=== PATIENT | female | born 1935 | race Caucasian/White ===

== ENCOUNTER 2022-06-21 11:50 | Emergency (ER) | payer MEDICARE, SELFPAY ==
[2022-06-21 12:06] VITALS: BP 147/75; PULSE 67; RESP 18; TEMP 36.4; O2SAT 100; BMI 23.6
--- NOTE | 2022-06-21 12:13 | ED_ITS ---
HPI - General Adult General Time Seen by Provider: 12:13 Date Seen: 06/21/22 Chief complaint: Dizziness/Vertigo Stated complaint: Vertigo Time Seen by Provider: 06/21/22 12:00 Source: patient and RN notes reviewed Mode of arrival: wheelchair Limitations: no limitations History of Present Illness HPI narrative: Patient is an 86-year-old female coming in with concern of her head feeling funny. She states the best she can describe it is that it just feels like it is in her head and she feels funny. She feels like she might fall. When I ask her if it is a sense of imbalance, she states it feels like that. It is not a spinning sensation like true vertigo. She has a history of falling and having brain bleeds. On 12/06/2021 she was intoxicated and did end up following and had an acute subarachnoid and intraventricular hemorrhage. [place] [facility] [place] came back on February 11, there is a question of an abnormality on her head CT which on follow-up scan after observation here ended up being a artifact reportedly. She denies any head injury this time, no falls. Denies any visual changes, no headache, no speech abnormality. There is no focal weakness or motor abnormality in her arms or legs, no numbness tingling. She pulled out her walker to help her feel safe with walking. She has had no chest pain no sense of palpitations. She states she is on a baby aspirin, B12, vitamin-C, vitamin-D and a multivitamin. Related Data Home Medications Medication Instructions Recorded Confirmed No Known Home Medications 06/21/22 06/21/22 Allergies Allergy/AdvReac Type Severity Reaction Status Date / Time diphenhydramine Allergy Intermediate Verified 06/21/22 12:11 [From Benadryl] Sulfa (Sulfonamide Allergy Intermediate Verified 06/21/22 12:11 Antibiotics) Penicillins Allergy Unknown Verified 06/21/22 12:11 lisinopril Allergy Intermediate Uncoded 06/21/22 12:11 Review of Systems Status of ROS: Reports: 10 or more systems reviewed and unremarkable except as noted in History and below Exam Const: Vital Signs, click to edit/add: Vital Signs - 24 hr 06/21/22 12:06 Temperature 97.6 F Pulse Rate [Pulse Oximeter] 67 Respiratory Rate 18 Blood Pressure [Le ft Upper Arm] 147/75 H Pulse Oximetry 100 Documenting provider has reviewed patient's vital signs: yes Common normals: no apparent distress, oriented x3, no limitations, healthy appearing and alert General appearance: cooperative, comfortable (Sitting up on the edge the ER bed without any swaying or tremor) and well ket HENMT: Common normals: normocephalic, head/scalp atraumatic, hearing grossly normal bilaterally, external ears normal, external nose normal, nasal mucous membranes and turbinates normal, moist oral mucous membranes, oropharynx normal and dentition normal Head and scalp: normocephalic and atraumatic Nose: external nose normal and nasal mucous membranes and turbinates normal External ear: external ears normal Eye: Common normals: PERRL, EOMs intact bilaterally, conjunctivae normal and no scleral icterus Conjunctiva: conjunctiva(e) normal Pupil: PERRL Neck & C-Spine: Common normals: full ROM, no lymphadenopathy, supple, no meningeal signs, no JVD and thyroid normal Thyroid: thyroid normal Resp: Common normals: normal respiratory effort, no retractions, no use of accessory muscles and clear to auscultation bilaterally Auscultation: clear to auscultation bilaterally Cardio: Common normals: no JVD, regular rate, regular rhythm, S1 normal heart sound, S2 normal heart sound, no gallops, no clicks and no murmurs Rate: regular rate Rhythm: regular rhythm Heart sounds: S1 normal and S2 normal GI: Common normals: Normal to inspection, nondistended, normoactive bowel sounds present, soft to palpation, non-tender, no hepatosplenomegaly and no masses Palpation: soft and no hepatosplenomegaly Neuro: Common normals: oriented x3, CN's II-XII intact bilaterally, moves all extremities, no focal motor deficits and no sensory deficits noted Sensorium/orientation: alert Meningeal signs: no meningeal signs Coordination/balance: iqdszi-jb-jthv test normal, higv-yh-nyoj test normal and does not sway with eyes open Speech: speech normal Gait (neuro): normal gait Coordination: svwgtz-iv-wmoz test normal, xxfw-cp-itla test normal and does not sway with eyes open Psych: Appearance: well [facility] Course Course Hospital Course: We will obtain a head CT, basic labs on her. This time this may be more a issue disequilibrium. I find no focal deficits in no symptomatology pointing to an acute neurologic event. Will monitor her here and obtain these results. Reevaluation(s) Reevaluation #1: Patient states she is feeling better, we really have not done any interventions. I have discussed with her and her son that disequilibrium/lightheadedness can be a troublesome symptom. This does not mean that this symptom is not real to her but at this time in medicine we really do not have any easy readily identifiable fix for her. I would recommend physical therapy and she can get that referral through her primary care provider. If the symptoms should return and are severe, I would always recommend re-evaluation as a did review with them that symptom changes that are severe could be indicative of cardiac or [employer] disease. At this time, however, I do feel that she is safe to proceed to further outpatient evaluation and follow up with her primary care provider. Time: 14:23 Vital Signs Vital signs: Initial Vital Signs Temperature 97.6 F 06/21/22 12:06 Temperature Source Temporal Artery Scan 06/21/22 12:06 Pulse Rate 67 06/21/22 12:06 Respiratory Rate 18 06/21/22 12:06 Blood Pressure 147/75 H 06/21/22 12:06 Blood Pressure Mean 99 06/21/22 12:06 Blood Pressure Position Supine 06/21/22 12:06 Pulse Oximetry 100 06/21/22 12:06 Vital Signs Temperature 97.6 F 06/21/22 12:06 Pulse Rate 67 06/21/22 12:06 Respiratory Rate 18 06/21/22 12:06 Blood Pressure 147/75 H 06/21/22 12:06 Pulse Oximetry 100 06/21/22 12:06 Temperature 97.6 F 06/21/22 12:06 Pulse Rate 67 06/21/22 12:06 Respiratory Rate 18 06/21/22 12:06 Blood Pressure 147/75 H 06/21/22 12:06 Pulse Oximetry 100 06/21/22 12:06 Medical Decision Making Lab Data Lab results reviewed: Yes I reviewed the patient's lab results (We did review the stable low hemoglobin.) Lab results narrative: Son was wondering if she should eat more iron rich foods like spinach. Reviewed with him that they should discuss this further with her primary care provider. Sometimes a hemoglobin in her if it has been this level as I am seen in her records, can be indicative of anemia of chronic disease and not truly an iron deficiency process. I would recommend talking to her primary about this further. Labs: Lab Results 06/21/22 06/21/22 Range/Units 13:20 13:20 WBC 5.21 (4.50-11.00) K/uL RBC 3.25 L (4.00-5.20) m/uL Hgb 10.6 L (12.0-16.0) gm/dL Hct 32.6 L (33.0-51.0) % MCV 100 (80-100) fL MCH 33 (26-34) pg MCHC 33 (32-36) gm/dL RDW Coeff of [place] 21.4 H (11.5-15.5) % Plt Count 393 (140-440) K/uL Neut % (Auto) 53.9 (42.0-72.0) % Lymph % (Auto) 30.7 (20-44) % [place] % (Auto) 12.5 H (0.0-11.0) % Eos % (Auto) 1.7 (0.0-7.0) % Baso % (Auto) 1.0 (0.0-3.0) % Neut # (Auto) 2.81 (1.7-7.0) K/uL Lymph # (Auto) 1.60 (0.90-2.90) K/uL [place] # (Auto) 0.70 (0.00-0.90) K/UL Eos # (Auto) 0.09 (0.00-0.50) K/uL Baso # (Auto) 0.05 (0.00-0.30) K/uL Abs Immat Gran (auto) 0.01 (0.00-0.30) K/uL Sodium 142 (135-149) mmol/L Potassium 3.9 (3.6-5.1) mmol/L Chloride 106 (96-114) mmol/L Carbon Dioxide 29 (20-32) mmol/L BUN 11 (7-30) mg/dL Creatinine 0.6 (0.5-1.5) mg/dL Estimated Creat Clear 33.87 Estimated GFR 88 ml/min Glucose 91 (60-115) mg/dL Calcium 9.3 (8.4-10.6) mg/dL Total Bilirubin 0.4 (0.1-1.5) mg/dL AST 17 (12-35) U/L ALT 12 (4-35) U/L Alkaline Phosphatase 79 (40-150) U/L Total Protein 6.7 (6.0-8.3) g/dL Albumin 4.0 (3.3-5.0) g/dL Ethyl Alcohol < 0.01 L (0.01-0.03) % Imaging Data CT scan - head: Attestation: I have reviewed the pertinent imaging results. Radiologist's impression: Patient: MICHELLE FLOOD Facility:?[facility] Patient ID:?[id number] Site Patient ID:?[id number]. Site :?[id number] Study:?CT Head WITHOUT-06/21/2022 12:45:49 PM Ordering Physician:Shelley Delcid Final Report: INDICATION: Unsteady TECHNIQUE: Noncontrast CT images acquired through the brain. COMPARISON: CT brain 02/11/2022. FINDINGS: Prominence of the ventricles and sulci compatible with njyj-bc-iiekgjpt diffuse cerebral volume loss. No mass effect or midline shift. The [place] white differentiation is maintained. No acute intracranial hemorrhage or pathologic extra-axial fluid collection. Patchy hypoattenuation in the supratentorial white matter, suggestive of xqgp-bi-nihyafuj chronic microvascular changes. Intracranial atherosclerotic calcification occasions. Thinning of the ocular lenses. The calvarium is intact. Mild mucosal thickening left ethmoid air cells. The mastoid air cells are clear. IMPRESSION: No acute intracranial hemorrhage or mass effect. Please note that all CT scans at this facility use dose modulation, iterative reconstruction, and/or weight-based dosing when appropriate to reduce radiation dose to as low as reasonably achievable. Dictated by Isaac Dubon MD @ 06/21/2022 12:59:07 PM (Electronic Signature) Critical Care Time Critical Care Time Critical Care Time: No Discharge Plan Discharge Clinical Impression: Dysequilibrium Condition: Stable Instructions: Vertigo (ED), Dizziness (ED) Additional Instructions: Please schedule a follow-up with your primary care provider. Do recommend considering seen physical therapy, referral can be obtained through primary clinic. If you have return of symptoms that are severe, cannot function at home with return of symptoms, do need to be re-evaluated in the interim. Activity Level: Activity as Tolerated Prescriptions: No Action No Known Home Medications Follow Up/Referrals: Keyla Estes DO [Primary Care Provider] - Stand Alone Forms: [employer] Info Instructions
--- NOTE | 2022-06-21 12:30 | CRLHL7_ITS ---
For Patients: As a result of the Century Cures Act, medical imaging exams and procedure reports are released immediately into your electronic medical record. You may view this report before your referring provider. If you have questions, please contact your health care provider. INDICATION: Unsteady TECHNIQUE: Noncontrast CT images acquired through the brain. COMPARISON: CT brain 02/11/2022. FINDINGS: Prominence of the ventricles and sulci compatible with jsvq-lf-grikkehk diffuse cerebral volume loss. No mass effect or midline shift. The [place] white differentiation is maintained. No acute intracranial hemorrhage or pathologic extra-axial fluid collection. Patchy hypoattenuation in the supratentorial white matter, suggestive of ikvl-vm-ydluvtzp chronic microvascular changes. Intracranial atherosclerotic calcification occasions. Thinning of the ocular lenses. The calvarium is intact. Mild mucosal thickening left ethmoid air cells. The mastoid air cells are clear. IMPRESSION: No acute intracranial hemorrhage or mass effect. Please note that all CT scans at this facility use dose modulation, iterative reconstruction, and/or weight-based dosing when appropriate to reduce radiation dose to as low as reasonably achievable. Dictated by Isaac Dubon MD @ 06/21/2022 12:59:07 PM (Electronically Signed)
[2022-06-21 13:33] LABS: Basophils Absolute Auto 0.05 K/uL (0.00-0.30); Eosinophils Absolute Auto 0.09 K/uL (0.00-0.50); Eosinophils Percent Auto 1.7 % (0.0-7.0); Hematocrit 32.6 % (33.0-51.0); Hemoglobin* 10.6 gm/dL (12.0-16.0); Immature Granulocytes Abs Auto 0.01 K/uL (0.00-0.30); Lymphocytes Percent Auto 30.7 % (20-44); Mean Corpuscular HGB Conc 33 gm/dL (32-36); Mean Corpuscular Hemoglobin 33 pg (26-34); Mean Corpuscular Volume 100 fL (80-100); Monocytes Percent Auto 12.5 % (0.0-11.0); Neutrophils Absolute Auto 2.81 K/uL (1.7-7.0); Neutrophils Percent Auto 53.9 % (42.0-72.0); Platelet Count* 393 K/uL (140-440); RDW Coefficient of Variation % 21.4 % (11.5-15.5); Red Blood Count 3.25 m/uL (4.00-5.20); White Blood Count* 5.21 K/uL (4.50-11.00)
--- NOTE | 2022-06-21 13:42 | ED.NURSE ---
Patient up to bathroom with no assist. Reports vertigo sensation seems to have passed.
[2022-06-21 13:51] LABS: Slide Review Reflex No
[2022-06-21 13:57] LABS: Chloride* 106 mmol/L (96-114)
[2022-06-21 13:58] LABS: Potassium* 3.9 mmol/L (3.6-5.1); Sodium* 142 mmol/L (135-149)
[2022-06-21 14:00] LABS: Aspartate Amino Transferase* 17 U/L (12-35); Bilirubin Total* 0.4 mg/dL (0.1-1.5); Blood Urea Nitrogen* 11 mg/dL (7-30); Carbon Dioxide* 29 mmol/L (20-32); Creatinine* 0.6 mg/dL (0.5-1.5); Est. Creatinine Clearance* 33.87; Estimated Glomerular Filt Rate 88 ml/min; Total Protein* 6.7 g/dL (6.0-8.3)
[2022-06-21 14:01] LABS: Alanine Aminotransferase* 12 U/L (4-35); Alkaline Phosphatase* 79 U/L (40-150); Calcium* 9.3 mg/dL (8.4-10.6); Glucose* 91 mg/dL (60-115)
[2022-06-21 14:03] LABS: Ethanol* < 0.01 % (0.01-0.03)
== END 2022-06-21 14:50 | disposition home or self-care (01) ==
PROVIDERS: Emergency Provider Family Medicine; PCP Family Medicine
DX: R42 Dizziness and giddiness (principal)
CPT/HCPCS: 36415; 70450; 80053; 82077; 85025; 99284

== ENCOUNTER 2022-07-03 13:15 | Outpatient (RCR) | payer MEDICARE, SELFPAY | END 2023-02-24 13:47 | disposition home or self-care (01) | PROVIDERS: PCP Family Medicine; Visit Provider Family Medicine | DX: R42 Dizziness and giddiness (principal); Z51.89 Encounter for other specified aftercare | CPT/HCPCS: 97162 ==

== ENCOUNTER 2023-02-06 18:56 | Emergency (ER) | payer MEDICARE, SELFPAY ==
[2023-02-06 19:07] VITALS: BP 153/66; PULSE 82; RESP 20; TEMP 35.9; O2SAT 99; BMI 24.2
[2023-02-06 19:26] LABS: Appearance Urine Clear (Clear); Bilirubin Urine Negative (Negative); Blood Urine 3+ (Negative); Color Urine Red (Yellow); Glucose Urine Negative (Negative); Ketones Urine Negative (Negative); Leukocyte Esterase Urine 1+ (Negative); Nitrite Urine Negative (Negative); Protein Urine 2+ (Negative); Specific Gravity Urine <= 1.005 (1.000-1.030); Urobilinogen Urine 0.2 (0.2-1.0)
--- NOTE | 2023-02-06 19:27 | ED.GENADULT ---
HPI - General Adult General Chief complaint: Urogenital Problems, Female Stated complaint: Blood in urine Time Seen by Provider: 02/06/23 19:16 History of Present Illness HPI narrative: This 87-year-old female comes in reporting red color in her urine. She states that she feels completely normal. She does report a somewhat remote history of bladder cancer that was treated about 10 years ago. She has been doing well since then. She denies having any symptoms of dysuria and does not report any fevers. Related Data Home Medications Medication Instructions Recorded Confirmed No Known Home Medications 06/21/22 06/21/22 Allergies Allergy/AdvReac Type Severity Reaction Status Date / Time diphenhydramine Allergy Intermediate Verified 06/21/22 12:11 [From Benadryl] Sulfa (Sulfonamide Allergy Intermediate Verified 06/21/22 12:11 Antibiotics) Penicillins Allergy Unknown Verified 06/21/22 12:11 lisinopril Allergy Intermediate Uncoded 06/21/22 12:11 Review of Systems Status of ROS: Reports: 10 or more systems reviewed and unremarkable except as noted in History and below Narrative: Constitutional: No fevers, no weight gain or loss. Eyes: No discharge. No vision changes. HENT: No congestion, no sore throat, no ear pain. Cardiovascular: No chest pain, no palpitations. Respiratory: No shortness of breath, no wheezes, no cough. Gastrointestinal: No abdominal pain, no vomiting, no diarrhea. Genitourinary: No symptoms of dysuria but does have hematuria as described above. Musculoskeletal: Normal range of motion. Skin: No rashes, no pruritis. Neurological: No dizziness, weakness, sensory change, speech change. Endo/Heme/Allergies: No bruising or bleeding. No polydipsia. Pysch: no suicidality, no anxiety, no insomnia. All other systems reviewed and are negative. Exam Narrative: Exam Narrative: Constitutional: Well-developed, well-nourished, no acute distress. HEENT: Normocephalic, atraumatic. Neck: Normal range of motion. Nontender. Supple. Heart: Intact distal pulses. Lungs: No chest discomfort. No wheezes, rhonchi, or rales. Abdomen: Nontender. Back: Normal range of motion. Extremities: Normal range of motion. No injury. Skin: Intact. No rash. Warm. No erythema or pallor. Neurologic: No altered sensation. No weakness. Alert and oriented. Psychiatric: No suicidality. No anxiety or depression. No insomnia. Nursing notes and vitals signs are reviewed. Const: Vital Signs, click to edit/add: Vital Signs - 24 hr 02/06/23 19:07 Temperature 96.6 F L Pulse Rate [Pulse Oximeter] 82 Respiratory Rate 20 Blood Pressure [Ri ght Upper Arm] 153/66 H Pulse Oximetry 99 Course Vital Signs Vital signs: Initial Vital Signs Temperature 96.6 F L 02/06/23 19:07 Temperature Source Temporal Artery Scan 02/06/23 19:07 Pulse Rate 82 02/06/23 19:07 Pulse Rhythm Regular 02/06/23 19:07 Respiratory Rate 20 02/06/23 19:07 Blood Pressure 153/66 H 02/06/23 19:07 Blood Pressure Mean 95 02/06/23 19:07 Blood Pressure Position Sitting 02/06/23 19:07 Pulse Oximetry 99 02/06/23 19:07 Vital Signs Temperature 96.6 F L 02/06/23 19:07 Pulse Rate 82 02/06/23 19:07 Respiratory Rate 20 02/06/23 19:07 Blood Pressure 153/66 H 02/06/23 19:07 Pulse Oximetry 99 02/06/23 19:07 Temperature 96.6 F L 02/06/23 19:07 Pulse Rate 82 02/06/23 19:07 Respiratory Rate 20 02/06/23 19:07 Blood Pressure 153/66 H 02/06/23 19:07 Pulse Oximetry 99 02/06/23 19:07 Medical Decision Making MDM Narrative Medical decision making narrative: This patient comes in reporting red color in her urine. She states that she feels completely normal but does have a history of bladder cancer about 10 years ago. Urinalysis today shows no sign of infection but there is 10-25 red blood cells per high-powered field. I advised the patient follow-up with her urologist regarding this finding. She is okay to be discharged home for now. I also identified signs or symptoms that would indicate a need for return and re-evaluation here. Lab Data Labs: Lab Results 02/06/23 Range/Units 19:20 Urine Color Red A (Yellow) Urine Appearance Clear (Clear) Urine pH 6.0 (5.0-8.5) Ur Specific [place] <= 1.005 (1.000-1.030) Urine Protein 2+ A (Negative) Urine Glucose (UA) Negative (Negative) Urine Ketones Negative (Negative) Urine Blood 3+ A (Negative) Urine Nitrite Negative (Negative) Urine Bilirubin Negative (Negative) Urine Urobilinogen 0.2 (0.2-1.0) Ur Leukocyte Esterase 1+ A (Negative) Urine RBC 10-25 A (0-2) Urine WBC 0-2 (0-5) Ur Squamous Epith Cells Few (None-Few) Urine Bacteria None (None) Discharge Plan Discharge Clinical Impression: Hematuria Patient Disposition: Home, Self-Care Condition: Unchanged Additional Instructions: Follow-up with urology clinic for further evaluation. Return if worsening symptoms occur. Prescriptions: No Action No Known Home Medications Follow Up/Referrals: Keyla Estes DO [Primary Care Provider] - Stand Alone Forms: [employer] Info Instructions
[2023-02-06 19:38] LABS: Squamous Epithelial Cell Urine Few (None-Few); WBC Urine 0-2 (0-5)
== END 2023-02-06 19:54 | disposition home or self-care (01) ==
PROVIDERS: Emergency Provider Emergency Medicine Emergency Medical Services; PCP Family Medicine
DX: R31.9 Hematuria, unspecified (principal)
CPT/HCPCS: 81001; 99283; 99284

== ENCOUNTER 2023-12-29 12:49 | Outpatient (CLI) | payer MEDICARE, SELFPAY | END 2023-12-29 12:50 | disposition home or self-care (01) | LOC: INJ CL 12:49 | PROVIDERS: PCP Family Medicine; Visit Provider Family Medicine | DX: M17.12 Unilateral primary osteoarthritis, left knee (principal); M25.562 Pain in left knee | CPT/HCPCS: 64454 ==

== ENCOUNTER 2024-01-05 12:11 | Outpatient (CLI) | payer MEDICARE, SELFPAY | END 2024-01-05 12:12 | disposition home or self-care (01) | LOC: INJ CL 12:11 | PROVIDERS: PCP Family Medicine; Visit Provider Family Medicine | DX: M17.12 Unilateral primary osteoarthritis, left knee (principal); M25.562 Pain in left knee; G89.29 Other chronic pain | CPT/HCPCS: 64624; J2250; J3010 ==

== ENCOUNTER 2024-02-09 14:10 | Outpatient (RCR) | payer MEDICARE, SELFPAY | END 2024-03-24 13:24 | disposition home or self-care (01) | PROVIDERS: PCP Family Medicine; Visit Provider Family Medicine | DX: M53.3 Sacrococcygeal disorders, not elsewhere classified (principal); M54.50 Low back pain, unspecified; Z51.89 Encounter for other specified aftercare | CPT/HCPCS: 97110; 97140; 97161 ==

== ENCOUNTER 2024-04-20 15:16 | Emergency (ER) | payer MEDICARE, SELFPAY ==
[2024-04-20 15:19] VITALS: BP 127/77; PULSE 97; RESP 16; TEMP 37; O2SAT 98; BMI 25.9
--- NOTE | 2024-04-20 15:38 | CRLHL7_ITS ---
For Patients: As a result of the Century Cures Act, medical imaging exams and procedure reports are released immediately into your electronic medical record. You may view this report before your referring provider. If you have questions, please contact your health care provider. Indication: Right foot injury, jammed toe Technique: Three views right great toe Comparison: None Findings/Impression: The patient is status post proximal phalangeal surgery of the great toe with an acute oblique articular fracture extending from the medial cortex to the MTP joint. No significant displacement on these views. Underlying osteoarthritis of the 1st MTP joint with exuberant osteophytes and joint space narrowing. Some joint space narrowing at the 2nd MTP joint noted with a likely hammertoe deformity as well. Soft tissue swelling of the great toe. Dictated by Joni Mcintyre MD @ 04/20/2024 5:09:31 PM (Electronically Signed)
--- NOTE | 2024-04-20 15:39 | ED.GENADULT ---
HPI - General Adult General Chief complaint: Extremity Pain/Injury, Lower Stated complaint: R foot injured-tripped and fell Time Seen by Provider: 04/20/24 15:23 Source: patient Mode of arrival: ambulatory Limitations: no limitations History of Present Illness HPI narrative: 88-year-old female coming in today complaining of toe pain. Patient states that she was at [employer] and she tripped over a mattress palate. She complains of toe pain, the rest of the foot is entirely normal. Related Data Home Medications ?Medication ?Instructions ?Recorded ?Confirmed esomeprazole magnesium 40 mg 40 mg PO DAILY 04/20/24 04/20/24 capsule,delayed release Allergies Allergy/AdvReac Type Severity Reaction Status Date / Time diphenhydramine Allergy Intermediate Verified 04/20/24 15:25 [From Benadryl] Sulfa (Sulfonamide Allergy Intermediate Verified 04/20/24 15:25 Antibiotics) Penicillins Allergy Unknown Verified 04/20/24 15:25 lisinopril Allergy Intermediate Uncoded 06/21/22 12:11 Review of Systems Status of ROS: Reports: 6 or more systems reviewed and unremarkable except as noted in History and below [facility] Social History Smoking Status: Former smoker Do you use any of these nicotine containing products: None Second hand tobacco smoke exposure: No How often do you have a drink containing alcohol: 2-4 times a month How many standard drinks containing alcohol do you have on a typical day: 1 or 2 How often do you have six or more drinks on one occasion: Never AUDIT-C Alcohol total score: 2 Non-prescribed substance use: denies use service: No Exam Narrative: Exam Narrative: Well-nourished well-developed patient in no acute distress. Alert and oriented. Answers questions appropriately. Mood and affect are appropriate. Thoughts are goal oriented and rational. No tangential or magical thinking noted. Patient speaks in full sentences without needing to catch her breath. HEENT: Normocephalic atraumatic. Pupils are equally round reactive to light. Extraocular muscles are intact. Conjunctivae are moist without any icterus noted. Moist mucous membranes. Extremities: Patient has 1 to 2+ pitting edema bilaterally. She has old scarring on the right foot from previous bunion and toe surgeries. She has normal DP and PT pulses. She has tenderness palpation of the big toe however, there is no ecchymosis or erythema noted, she does have mild swelling. She does have a small neck of the skin on the plantar surface of the big toe. Bleeding has stopped. Const: Vital Signs, click to edit/add: Vital Signs - 24 hr 04/20/24 15:19 Temperature 98.6 F Pulse Rate [Pulse Oximeter] 97 Respiratory Rate 16 Blood Pressure [Ri ght Upper Arm] 127/77 Pulse Oximetry 98 Oxygen Delivery Me thod Room Air Course Course ED Course: Small skin puncture was cleaned and dressed. X-ray of the toe does reveal a fracture. Patient is placed in a postop shoe. She will follow-up with orthopedics. Vital Signs Vital signs: Initial Vital Signs Temperature 98.6 F 04/20/24 15:19 Temperature Source Temporal Artery Scan 04/20/24 15:19 Pulse Rate 97 04/20/24 15:19 Pulse Rhythm Regular 04/20/24 15:19 Pulse Strength 3+ Normal 04/20/24 15:19 Respiratory Rate 16 04/20/24 15:19 Blood Pressure 127/77 04/20/24 15:19 Blood Pressure Mean 93 04/20/24 15:19 Blood Pressure Position Sitting 04/20/24 15:19 Pulse Oximetry 98 04/20/24 15:19 Oxygen Delivery Method Room Air 04/20/24 15:19 Vital Signs Temperature 98.6 F 04/20/24 15:19 Pulse Rate 97 04/20/24 15:19 Respiratory Rate 16 04/20/24 15:19 Blood Pressure 127/77 04/20/24 15:19 Pulse Oximetry 98 04/20/24 15:19 Oxygen Delivery Method Room Air 04/20/24 15:19 Temperature 98.6 F 04/20/24 15:19 Pulse Rate 97 04/20/24 15:19 Respiratory Rate 16 04/20/24 15:19 Blood Pressure 127/77 04/20/24 15:19 Pulse Oximetry 98 04/20/24 15:19 Oxygen Delivery Method Room Air 04/20/24 15:19 Medical Decision Making MDM Narrative Medical decision making narrative: Fracture of the great toe. Plan per above Imaging Data X-ray great toe: Attestation: I have reviewed the pertinent imaging results. Radiologist's impression: Three views right great toe Comparison: None Findings/Impression: The patient is status post proximal phalangeal surgery of the great toe with an acute oblique articular fracture extending from the medial cortex to the MTP joint. No significant displacement on these views. Underlying osteoarthritis of the 1st MTP joint with exuberant osteophytes and joint space narrowing. Some joint space narrowing at the 2nd MTP joint noted with a likely hammertoe deformity as well. Soft tissue swelling of the great toe. Discharge Plan Discharge Clinical Impression: Fracture of toe Patient Disposition: Home, Self-Care Condition: Stable Additional Instructions: Wear postop shoe at all times, this will help with healing and with pain. Elevate the foot as much as possible when you are at home resting. Okay to take Tylenol as needed for discomfort. Should follow up with Orthopedics early next week-phone number will be given to you to make that appointment. Prescriptions: No Action esomeprazole magnesium 40 mg capsule,delayed release(DR/EC) 40 mg PO DAILY Follow Up/Referrals: Keyla Estes DO [Primary Care Provider] - Stand Alone Forms: [employer] Info Instructions
--- OUTSIDE RECORDS SUMMARY | 2024-04-20 16:05 | XMS_ITS | Clinical Summary ---
Author Organization [facility] Address [place], [place] [address] Care Team Providers Care Tap Builder Name Role Phone Keyla Estes DO Primary Care Provider [phone] Rhina Moore RN Unavailable [phone] Josiane Pineda Unavailable [phone] Allergies Active Allergy Reactions Criticality Noted Date Comments Amoxicillin-Pot Clavulanate Hives 11/08/2013 Diphenhydramine Hives 07/06/2009 Cat Dander Cough 12/22/2016 Celecoxib Rash 05/11/2007 Ibuprofen Other - Describe In Comment Field 04/13/2024 Stomach issue Penicillins Hives 05/11/2007 Entire drug class Pollen Extracts Other - Describe In Comment Field 04/13/2024 Sneezing, eye water, cough, and runny nose Guaifenesin Vomiting 07/02/2018 [place] Rash 09/21/2020 Sulfa (Sulfonamide Antibiotics) 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 0 05/12/2017 Active multivitamin (MVI) tablet Take 1 tablet by mouth once daily. 0 09/21/2020 Active cyanocobalamin (VITAMIN B-12) 1,000 mcg tabletIndications: Low vitamin B12 level Take 1 tablet by mouth once daily. 90 tablet. 3 10/30/2020 Active cholecalciferol (Vitamin D) 1,000 unit capsule Take 1 Capsule (1,000 units) by mouth once daily. 0 08/19/2021 Active acetaminophen (TYLENOL) 325 mg tablet Take 3 Tablets (975 mg) by mouth 3 times daily. Max acetaminophen dose: 4000mg in 24 hrs. 0 01/09/2022 Active ascorbic acid, vitamin C, (Vitamin C) 1,000 mg tablet Take 1 Tablet (1,000 mg) by mouth once daily. 0 04/28/2022 Active aspirin chewable 81 mg chewable tablet Chew 81 mg by mouth. Every other day 0 04/28/2022 Active Graduated Compression StockingsIndicatio ns:Vascular insufficiency of limb For personal use. Length: calf Strength: 16-20 mmHg Circumference in cm: For calf: Ankle 23, Calf 34.5, Ankle to calf length 21cm. 1 Packet 04/28/2022 Active calcium carbonate (CALTRATE) 600 mg calcium (1,500 mg) tablet Take 1 Tablet (600 mg) by mouth two times daily with meals. 180 Tablet 3 02/09/2023 Active levoFLOXacin (Levaquin) 500 mg tabletIndications: Malignant neoplasm of urinary bladder, unspecified site (HC) Take one tablet six hours after treatment and one tablet the day following treatment 6 Tablet 02/12/2024 Active esomeprazole (NEXIUM) 40 mg capsuleIndications :Black stool,Anemia of unknown etiology Take 1 Capsule (40 mg) by mouth once daily before a meal. 90 Capsule 04/19/2024 Active esomeprazole (NEXIUM) 40 mg capsuleIndications :Black stool,Anemia of unknown etiology Take 1 Capsule (40 mg) by mouth once daily before a meal. 90 Capsule 02/23/2024 04/19/20 24 Discontinu ed(Reorder (E-cancel not sent)) Active Problems Problem Noted Date Diagnosed Date Lipodermatosclerosis 08/11/2023 COVID-19 virus infection 08/02/2021 Fibromuscular dysplasia 02/06/2021 Overview: Saw vascular 12/2020. Told optimal blood pressure control with goal of less than 130/80 mmHg. Advised to avoid straining exercises or visits to chiropractors Advised to start aspirin 81 mg p.o. daily long-term as long as she can tolerate it No need to repeat images unless she becomes more symptomatic Anemia of chronic disease 02/06/2021 Overview: Saw hematology Dec 2020, told ACD, check CBC every 6 hours-12months with primary care physician Osteoarthritis of both knees 10/31/2020 Acute gastric ulcer with hemorrhage 12/21/2018 Overview: EGD 12/2018 5 mm penetrating ulcer, repeat EGD in 3 months EGD 03/2019 complete healing of ulcer Elevated BP 08/27/2015 Bladder cancer 06/23/2014 Overview: Bladder cancer. History of non-invasive papillary urothelial carcinoma, high grade diagnosed in 2012 ([id number]). Rotator cuff arthropathy 02/03/2014 Degenerative cervical disc 02/03/2014 Family history of uterine cancer 07/14/2013 Aortic regurgitation 12/12/2011 Overview: 1. Echocardiogram 2012: Mildly sclerotic, trileaflet aortic valve without stenosis. A. Mild plus aortic regurgitation. 2. Borderline size of the left atrium. 3. Normal sized left ventricle. A. Normal wall motion. B. Ejection fraction better than 55%. 4. Mildly sclerotic mitral valve. A. Trace mitral regurgitation. Trace tricuspid regurgitation. Enthesopathy of ankle and tarsus, unspecified Resolved Problems Problem Noted Date Diagnosed Date Resolved Date Traumatic brain injury, with loss of consciousness of 30 minutes or less, initial encounter 08/11/2023 01/26/2024 Encounters Date Type Department Care Team Description 04/19/2024 10:50 AM CDT Office Visit [facility] [address] [place] [address] Keyla Estes, Follow Up; Immunization/Inject ion 04/19/2024 Travel 04/13/2024 11:00 AM CDT Office Visit [facility] [place] [facility] [address] [place] [address] Josiane Pineda MBBS Follow Up 04/13/2024 Travel 04/06/2024 Orders Only [facility] [address] [place] [address] Keyla Estes, <No scans attached> 04/05/2024 11:15 AM CDT Orders Only [facility] [address] [place] [address] [place] [facility] 04/05/2024 Travel 03/25/2024 Telephone [facility] [address] [place] [address] [place], [facility] Cancer Appointment 03/08/2024 11:15 AM CDT Orders Only [facility] [address] [place] [address] [place] [facility] 03/08/2024 Orders Only [facility] [address] [place] [address] [address] Keyla Estes, DO <No scans attached> 03/08/2024 Travel 02/29/2024 12:08 PM CDT - 02/29/2024 11:59 PM CDT Hospital Encounter [facility] [address] [place] [address] 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 (HC) (Primary Dx) 02/29/2024 9:45 AM CDT Orders Only [facility] [place] [address] Lab, [place] [facility] 02/29/2024 Travel 02/25/2024 10:30 AM CDT Office Visit [facility] [place] [address] Sean Lara, [place] Hearing Aid (Consultation) 02/25/2024 9:00 AM CDT Office Visit [facility] [place] [address] [address] Sean Lara, [place] Hearing Problem 02/25/2024 Travel 02/23/2024 12:30 PM CDT Office Visit [facility] [place] [address] [address] Keyla Estes DO Follow Up (hgb) 02/22/2024 12:10 PM CDT - 02/22/2024 11:59 PM CDT Hospital Encounter [facility] [address] [address] 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 [place] [address] Lab, [place] [facility] 02/15/2024 Travel 02/12/2024 Telephone [facility] [address] [facility] [facility] [place] [address] Keyla Estes DO Medication Problem 02/12/2024 Refill [facility] [address] [place] [address] Josiane Pineda MBBS Refill Request 02/11/2024 Orders Only [facility] [address] [place] [address] Josiane Pineda MBBS <No scans attached> 02/10/2024 11:30 AM CDT Office Visit [facility] [address] [facility] [place] [address] Jose Ramon Alcantar DPM Consult (Left foot concern) 02/09/2024 9:35 AM CDT Office Visit [facility] [address] [place] [address] Keyla Estes DO Back Pain/problem (Lower right sided back pain 2 weeks) 02/09/2024 Travel 02/07/2024 Travel 02/02/2024 10:00 AM CDT Office Visit [facility] [address] [address] Josiane Pineda MBBS Follow Up 02/02/2024 Telephone [facility] [address] [place] [address] Keyla Estes DO Referral (Audiology ) 02/02/2024 Orders Only [facility] [address] [place] [address] Josiane Pineda MBBS <No scans attached> 02/02/2024 Travel 01/26/2024 10:50 AM CDT Office Visit [facility] [address] [place] [address] Keyla Estes DO Memory Loss (concerns); Immunization/Inject ion 01/26/2024 Telephone [facility] [address] [place] [address] [place], [facility] Cancer 01/25/2024 10:30 AM CDT Office Visit [facility] [address] [place] [address] Marika Wade AuD Hearing Aid (OLEA check) 01/25/2024 Orders Only [facility] [address] [place] [address] Josiane Pineda MBBS <No scans attached> 01/25/2024 Travel from Last 3 Months Immunizations Name Administration Dates Next Due AMB INFLUENZA IIV3 (AGE 65+ YRS) PF (Flu Clinic Only) 08/31/2019 COVID-19 Vaccine Spikevax (M oderna 50mcg/0.5mL) 12YO+ [id number] Formula PF 04/19/2024,01/26/2024,08/11/2023 COVID-19 vaccine (Egr Renovation-Bio NTech 30mcg/0.3mL) 12YO+ BIVALENT PF, MDV 08/12/2022 COVID-19 vaccine (Pfizer-Bio NTech 30mcg/0.3mL) 12YO+ MIRIAM-SUCROSE PF, MDV 02/17/2022 COVID-19 vaccine (Egr Renovation-Bio NTech 30mcg/0.3mL) PF, MDV 10/29/2021,01/08/2021,12/18/2020 DT (Age < 7 years) 03/03/2000 HepA-HepB (Twinrix) 04/08/2004,11/06/2003,2002 Influenza, High-dose Inactivated 09/09/2016,04/2014 Influenza, High-dose Quadriv alent Inactivated 08/11/2020 Influenza, IIV3 (Age 6-35 mos) 07/11/2011 Influenza, IIV3 (Age >=3 years) 08/02/20 13,07/14/2012,07/11/2011,2006,09/09/2006,09/10/2005,08/14/2004 Influenza, Inactivated AIIV4 (Age 65+ Years) Preserv Free 08/11/2023,08/12/2022,07/23/2021 Influenza, Inactivated IIV3 (Age 65+ Years) Preserv Free 07/02/2018,12/21/2017 Pneumococcal Poly,23-Valent (Pneumovax) 07/06/2009 Pneumococcal conj 13-Valent (Prevnar 13) 09/07/2014 Tdap 02/11/2022,07/11/2011 Typhoid (injectable) 10/05/2003 Zoster (Shingrix-RZV, recombinant) 06/29/2019, Zoster (Zostavax-ZVL, live) 05/11/2007 Family History Medical History Relation Name Comments Alcohol/Drug Father Cancer Father throat, smoker Heart Disease Father Cancer-breast Maternal Aunt Cancer-breast Maternal Grandmother Cancer-breast Mother age 91 Hyperlipidemia Sister 1 and eating di sorder Cancer Sister 2 endometiral can cer Relation Name Status Comments Father Maternal Aunt Maternal Grandmother Mother Sister 1 Sister 2 Social History Tobacco Use Types Packs/Day Years Used Date Smoking Tobacco: Former Cigarettes Q uit: 1971 Passive Smoke Exposure: Never Smokeless Tobacco: Never Tobacco Cessation:Counseling Given: Yes Alcohol Use Standard Drinks/Week Comments Yes 0 (1 standard drink = 0.6 oz pur e alcohol) glass of wine, occasionally PHQ-2 Answer Date Recorded PHQ-2 TOTAL SCORE 0 08/11/2023 Social Connections Answer Date Recorded Frequency of Communication with Friends and Fami ly 0 01/26/2024 Financial Resource Strain Answer Date R ecorded Difficulty of Paying Living Expenses 3 01/26/2024 Difficulty of Paying Living Expenses Not on file 01/26/2024 Food Insecurity Answer Date Recorded Worried About Running Out of Food in the Last Ye ar 1 01/26/2024 Transportation Needs Answer Date Record ed Lack of Transportation (Medical) 1 01/26/2024 Housing Stability Answer Date Recorded Unable to Pay for Housing in the Last Year 1 01/26/2024 Sex and Gender Information Value Date Recorded Sex Assigned at Female 04/25/2021 10:01 PM CDT Gender Identity Female 04/25/2021 10:01 PM CDT Sexual Orientation Straight 04/25/2021 10 :02 PM CDT Obstetrics History Para Term AB IAB SAB Ectopic Multiple Livin g Live Births 4 2 2 2 2 2 Date Outcome GA Total Labor Labor/2nd/3rd Weight Sex Type Anes PTL Bekah A1 A5 Name Clin Para Living Para Living SAB SAB Last Filed Vital Signs Vital Sign Reading Time Taken Comments Blood Pressure 123/79 04/19/2024 11:47 AM CDT Pulse 68 04/19/2024 11:47 AM CDT Temperature 37 ??C (98.6 ??F) 04/13/2024 11:09 AM CDT Respiratory Rate 14 04/13/2024 11:09 AM CDT Oxygen Saturation 100% 04/19/2024 11:47 AM CDT Inhaled Oxygen Concentration - - Weight 56.2 kg (124 lb) 04/19/2024 11:47 AM CDT Height 147.3 cm (4' 10) 04/13/2024 11:09 AM CDT Body Mass Index 25.92 04/13/2024 11:09 AM CDT Plan of Treatment Upcoming Encounters Date Type Department Care Team (Late st Contact Info) Description 08/15/2024 10:25 AM CDT Office Visit [facility] [address] [facility] [address] Keyla Estes, [address] [place] [place] [address] Health Maintenance Due Date Last Done Comments COVID-19 vaccine series (2022-24 season) 2024 04/19/2024, 01/26/2024, 08/11/2023, Additional history exists Influenza for age 65+ 07/03/2024 08/11/2023 , 08/12/2022, 07/23/2021, Additional history exists Medicare Wellness for age 65+ 08/11/2024, 10/29/2021, 09/21/2020, Additional history exists Depression screening for age 12+ 08/13/2024 08/13/2023, 08/13/2023, 08/12/2023, Additional history exists BMI (ht and wt on same day) for age 18+ 04/13/2025 04/13/2024, 02/02/2024, 12/21/2023, Additional history exists Tetanus booster 02/12/2032 02/11/2022, 07/2011, 07/11/2011 Pneumococcal series for age 65+ Completed 4, 07/06/2009 DEXA/DXA scan for age 65+ Completed 02/06/2015, 06/2009 Zoster (shingles) series for age 50+ Completed 06/29/2019, 03/07/2019, 05/11/2007 Tdap Completed 02/11/2022, 07/11/2011 Procedures Procedure Name Priority Date/Time Associated Diagnosis Comments URINALYSIS MICROSCOPIC Timed 04/13/2024 11:18 AM CDT 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 (HC) UA W/ SEDIMENT EXAM REFLEXED PER CRITERIA Routine 04/13/2024 11:18 AM CDT 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 (HC) HEMOGLOBIN Routine 04/05/2024 11:40 AM CDT Black stool UA W/ SEDIMENT EXAM REFLEXED PER CRITERIA Routine 03/08/2024 2:12 PM CDT Malignant neoplasm of urinary bladder, unspecified site (HC) HEMOGLOBIN Routine 03/08/2024 12:06 PM CDT Anemia of unknown etiology URINALYSIS MICROSCOPIC Routine 02/29/2024 10:00 AM CDT 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 (HC) UA W/ SEDIMENT EXAM REFLEXED PER CRITERIA Routine 02/29/2024 10:00 AM CDT 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 (HC) FOLIC ACID Routine 02/23/2024 12:36 PM CDT Anemia of unknown etiology VITAMIN B12 Routine 02/23/2024 12:36 PM CDT Anemia of unknown etiology FERRITIN Routine 02/23/2024 12:36 PM CDT Anemia of unknown etiology IRON PLUS IRON BINDING CAP Routine 02/23/2024 12:36 PM CDT Anemia of unknown etiology HEMOGLOBIN Routine 02/23/2024 12:36 PM CDT Black stool URINALYSIS MICROSCOPIC Routine 02/22/2024 9:56 AM CDT Malignant neoplasm of urinary bladder, unspecified site (HC) UA W/ SEDIMENT EXAM REFLEXED PER CRITERIA Routine 02/22/2024 9:56 AM CDT Malignant neoplasm of urinary bladder, unspecified site (HC) HEMOGLOBIN Routine 02/22/2024 9:52 AM CDT Black stool URINALYSIS MICROSCOPIC Routine 02/15/2024 9:32 AM CDT 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 (HC) UA W/ SEDIMENT EXAM REFLEXED PER CRITERIA Routine 02/15/2024 9:32 AM CDT 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 (HC) CYSTOSCOPY Routine 02/04/2024 2:02 PM CDT Malignant neoplasm of urinary bladder, unspecified site (HC) PATH URINE CYTOLOGY Routine 02/02/2024 1 0:11 AM CDT Malignant neoplasm of urinary bladder, unspecified site (HC) CG UFISH Routine 02/02/2024 10:11 AM CDT Malignant neoplasm of urinary bladder, unspecified site (HC) U WETLAB Routine 02/02/2024 10:11 AM CDT Malignant neoplasm of urinary bladder, unspecified site (HC) URINE FISH CYTOGENETICS Routine 02/02/2024 10:11 AM CDT Malignant neoplasm of urinary bladder, unspecified site (HC) URINALYSIS MICROSCOPIC Routine 02/02/2024 10:11 AM CDT Malignant neoplasm of urinary bladder, unspecified site (HC) UA W/ SEDIMENT EXAM REFLEXED PER CRITERIA Routine 02/02/2024 10:11 AM CDT Malignant neoplasm of urinary bladder, unspecified site (HC) XR DXA BONE DENSITY 2 SITES AXIAL Routine 02/06/2015 11:36 AM CDT Osteopenia from Last 3 Months or Most Recently Relevant to Health Maintenance Results * URINALYSIS MICROSCOPIC (04/13/2024 11:18 AM CDT) Only the most recent of5 resultswithin the time period is included. RBC 0-2 0-2, None Seen /HPF 04/13/2024 12:14 PM CDT [facility] WBC 0-2 0-2, 3-5, None Seen /HPF 04/13/2024 12:14 PM CDT [facility] BACTERIA None Seen None Seen, Rare, Few Bacteria/ HPF 04/13/2024 12:14 PM CDT [facility] EPITHELIAL CELLS None Seen None Seen, Few Epi/HPF 04/13/2024 12:14 PM CDT [facility] HYALINE CASTS 0-2 0-2, 3-5 /LPF 04/13/2024 12:14 PM CDT [facility] Urine URINE SPECIMEN / Unknown Non-Blood / Unknown 04/13/2024 11:18 AM CDT 04/13/2024 11:53 AM CDT Josiane PICKENS URINE [facility] [address] [place] [address], [place] * (ABNORMAL) ROUTINE URINALYSIS (04/13/2024 11:18 AM CDT) Only the most recent of6 resultswithin the time period is included. COLOR Yellow Yellow Color 04/13/2024 12:14 PM CDT [facility] CLARITY Clear Clear Clarity 04/13/2024 12:14 PM CDT [facility] SPECIFIC GRAVITY,URINE <=1.005(A) 1.010, 1.015, 1.020, 1.025 04/13/2024 12:14 PM CDT [facility] PH,URINE 7.0 6.0, 7.0, 8.0, 5.5, 6.5, 7.5, 8.5 04/13/2024 12:14 PM CDT [facility] UROBILINOGEN, QUALITATIVE Normal Normal EU/dl 04/13/2024 12:14 PM CDT [facility] PROTEIN, URINE Negative Negative mg/dL 04/13/2024 12:14 PM CDT [facility] GLUCOSE, URINE Negative Negative mg/dL 04/13/2024 12:14 PM CDT [facility] KETONES,URINE Negative Negative mg/dL 04/13/2024 12:14 PM CDT [facility] BILIRUBIN,URI NE Negative Negative 04/13/2024 12:14 PM CDT [facility] OCCULT BLOOD,URINE Negative Negative 04/13/2024 12:14 PM CDT [facility] NITRITE Negative Negative 04/13/2024 12:14 PM CDT [facility] LEUKOCYTE ESTERASE Trace(A) Negative 04/13/2024 12:14 PM CDT [facility] Urine URINE SPECIMEN / Unknown Non-Blood / Unknown 04/13/2024 11:18 AM CDT 04/13/2024 11:53 AM CDT Josiane Pineda [facility] [address] [place] [address], * (ABNORMAL) HEMOGLOBIN (04/05/2024 11:40 AM CDT) Only the most recent of4 resultswithin the time period is included. HEMOGLOBIN 10.2(L) 12.0 - 16.0 g/dL 04/05/2024 11:46 AM CDT [facility] MCV 103(H) 80 - 100 fL 04/05/2024 11:46 AM CDT [facility] Blood BLOOD SPECIMEN / Unknown Venipuncture / Unknown 04/05/2024 11:40 AM CDT 04/05/2024 11:41 AM CDT Keyla Estes DO HEMATOLOGY Performing Organization Address City/[facility]/ZIP Co de Phone Number [facility] [address] [place] [address], * (ABNORMAL) IRON PLUS IRON BINDING CAP (02/23/2024 12:36 PM CDT) IRON 188(H) 37 - 145 ug/dL 02/23/2024 11:27 PM CDT [facility] UIBC (UNSATURATED) 74(L) 112 - 347 ug/dL 02/23/2024 11:27 PM CDT [facility] IRON BINDING CAPACITY 262 250 - 400 ug/dL 02/23/2024 11:27 PM CDT [facility] IRON,% SATURATION 72(H) 14 - 50 % 02/23/2024 11:27 PM CDT [facility] Blood BLOOD SPECIMEN / Unknown Venipuncture / Unknown 02/23/2024 12:36 PM CDT 02/23/2024 12:39 PM CDT Keylaher Tereza Estes DO CHEMISTRY Performing Organization Address [facility] Co de Phone Number [facility] [address] [place] [place] [phone], [place] * FOLIC ACID (02/23/2024 12:36 PM CDT) FOLIC ACID 18.3 4.6 - 34.8 ng/mL 02/23/2024 11:27 PM CDT [facility] Blood BLOOD SPECIMEN / Unknown Venipuncture / Unknown 02/23/2024 12:36 PM CDT 02/23/2024 12:39 PM CDT Narrative [facility] - 02/23/2024 11:27 PM CDT Biotin supplements may cause clinically significant interference for this test assay. ??If interference is suspected, it is strongly recommended that biotin is discontinued for at least one week prior to retesting. Keyla Estes DO CHEMISTRY Performing Organization Address [facility] Co de Phone Number [facility] [address] [place] [address], [place] * (ABNORMAL) FERRITIN (02/23/2024 12:36 PM CDT) FERRITIN 179.0(H) 15.0 - 150.0 ng/mL 02/23/2024 11:27 PM CDT [facility] Blood BLOOD SPECIMEN / Unknown Venipuncture / Unknown 02/23/2024 12:36 PM CDT 02/23/2024 12:39 PM CDT Keyla Tereza Estes [employer] CHEMISTRY Performing Organization Address City/[facility] Co de Phone Number [facility] [address] [address], [place] * VITAMIN B12 (02/23/2024 12:36 PM CDT) VITAMIN B12 791 232 - 1,245 pg/mL 02/23/2024 11:27 PM CDT [facility] Blood BLOOD SPECIMEN / Unknown Venipuncture / Unknown 02/23/2024 12:36 PM CDT 02/23/2024 12:39 PM CDT Narrative [facility] - 02/23/2024 11:27 PM CDT Biotin supplements may cause clinically significant interference for this test assay. ??If interference is suspected, it is strongly recommended that biotin is discontinued for at least one week prior to retesting. Keyla Estes DO CHEMISTRY Performing Organization Address City/[facility]/ZIP Co de Phone Number [facility] [address] [place] [address], [place] * U WETLAB (02/02/2024 10:11 AM CDT) Urine URINE SPECIMEN / Unknown Non-Blood / Unknown 02/02/2024 10:11 AM CDT 02/02/2024 11:25 AM CDT Josiane Pineda [facility] Performing Organization Address City/[facility]/ZIP Co de Phone Number [facility] [address] [place] [address], [place] * CG UFISH (02/02/2024 10:11 AM CDT) Urine URINE SPECIMEN / Unknown Non-Blood / Unknown 02/02/2024 10:11 AM CDT 02/02/2024 11:25 AM CDT Josiane Pineda [facility] Performing Organization Address [facility]/ZIP Co de Phone Number [facility] [address] [place] [address], [place] * CYTOGENETIC FISH UROTHELIAL CARCINOMA (02/02/2024 10:11 AM CDT) RFR Bladder Cancer 02/10/2024 5:08 PM CDT [facility] TEST & RESULT SUMMARY [employer]ion FISH Panel: Negative for all panel probes. 02/10/2024 5:08 PM CDT [facility] _ 02/10/2024 5:08 PM CDT [facility] ISCN nuc carlos manuel(D3Z1,D7Z1,CDKN 2A,D17Z1)x2[25] 02/10/2024 5:08 PM CDT [facility] INTERPRETATION The UroV[employer]ion FISH Panel revealed negative results for all panel probes. A negative result does not entirely exclude the possibility of underlying low grade non-invasive urothelial carcinoma as some patients with low grade non-invasive urothelial carcinoma show no FISH abnormalities (Charmaine, 2000). Clinicopathologic correlation of these results is recommended. 02/10/2024 5:08 PM CDT [facility] TEST DETAILS REFERENCE RANGES Polysomy = gain of 2 or more chromosomes in 4 or more cells. Homozygous 9p21 loss = loss of all 9p21 probe loci in 12 or more cells. Negative = none of the above criteria were met in 25 or more urothelial cells reviewed. 02/10/2024 5:08 PM CDT [facility] SOURCE Urine, void [id number] 02/10/2024 5:08 PM CDT [facility] METHODS Fluorescence in situ hybridization (FISH) is performed using the FDA approved Vysis[employer] UroVysion Bladder Cancer Kit specific for detecting aneuploidy for chromosomes 3, 7, 17 and the loss of locus 9p21. This FISH test uses a multiplex probe stain procedure. 02/10/2024 5:08 PM CDT [facility] REFERENCES Charmaine et al., J Mol Diagn. 2000; 2:116-123. 02/10/2024 5:08 PM CDT [facility] DISCLAIMER The FDA approved Vysis UroVysion FISH Probe Kit was developed and its performance characteristics determined by [facility]. This test is performed with minor modifications to protocol and validated by the [facility] and [facility] to yield equivocal or superior performance. 02/10/2024 5:08 PM CDT [facility] Urine URINE SPECIMEN / Unknown Non-Blood / Unknown 02/02/2024 10:11 AM CDT 02/02/2024 11:25 AM CDT [facility] [address] [place] [address], * PATH URINE CYTOLOGY (02/02/2024 10:11 AM CDT) Case Report Medical Cytology Report ? Case: [id number] ? Authorizing Provider: ??Josiane Pineda MBBS ??Collected: ? 02/02/2024 1011 ? Ordering Location: ? [facility] ? Received: ?02/02/2024 1026 ? [place] ? Pathologist: ? Ktay Dior ? MD [place] ? Specimen: ?Urine Void ? 02/02/2024 3:38 PM CDT [facility] Final Diagnosis URINE FOR CYTOLOGY: Negative for high grade urothelial carcinoma 02/02/2024 3:38 PM [facility] Comment Cytogenetic (UroVysion FISH Panel) is pending; results will be issued as a separate report. According to the Aisha system of reporting urinary tract cytology, the diagnosis of negative for high grade urothelial carcinoma indicates the sample is composed of benign urothelial cells and that cells that could remotely raise the suspicion of high grade urothelial carcinoma are absent. This does not and cannot exclude the possibility of a low grade urothelial neoplasm. 02/02/2024 3:38 PM T [facility] Clinical Information The patient is a 88 y.o. female with a history of bladder cancer. 02/02/2024 3:38 PM T [facility] Gross Description A) SOURCE: Urine, Voided The specimen consists of 20 cc of light yellow hazy fluid from which the following is prepared: ? -1 Papanicolaou stained ThinPrep slide 02/02/2024 3:38 PM [facility] Microscopic Description All slides were reviewed microscopically. Specimen adequacy: Adequate for interpretation. The microscopic appearance substantiates the diagnosis. 02/02/2024 3:38 PM [facility] Cytogenetics Summary Cytogenetic testing has been ordered and will be reported separately. 02/02/2024 3:38 PM CDT [facility] Additional Information Cytology is screened at [facility], Central Laboratory - [address], [place] [address] and [facility] - [address], [place] [address] and [facility] - [address] [place] [address] Interpreted at [facility], Central Laboratory - [address], [place] [address] 02/02/2024 3:38 PM CDT [facility] Urine URINE SPECIMEN / Unknown Non-Blood / Unknown 02/02/2024 10:11 AM CDT 02/02/2024 10:26 AM CDT [facility]/CYTOLO G[facility] [address] [place] [address], * (ABNORMAL) XR DXA BONE DENSITY 2 SITES (02/06/2015 11:36 AM CDT) Anatomical Region Laterality Modality Spine, HIPS, HIPL, HIPR Other Narrative 02/21/2015 8:14 AM CDT Please see scanned document for results of this study. Procedure Note Erika Stout PA - 02/21/2015 Please see scanned document for results of this study. Keyla Estes DO DEXA from Last 3 Months or Most Recently Relevant to Health Maintenance Advance Directives Documents on File Type Date Recorded Patient Web Development Intern Expl anation Healthcare Directive 09/13/2013 2:51 PM M N HEALTH CARE DIRECTIVE/LETTER & ANATOMICAL BEQUEST, [facility], 09/13/13 Power of Animal Cytologist 07/17/2011 DURABLE PO WER OF OIL DRILLER FOR HEALTH CARE, [facility], 01/09/94 Healthcare Directive 07/17/2011 HEALTH CARE DIRECTIVE/LETTER, [facility], 08/03/2009 * Full Code (Latest Code Status on File) Date Activated Date Inactivated Comments 04/02/2023 8:29 AM 04/02/2023 4:04 PM Question Answer Comments Code Status Discussion: Reviewed Preferences Care Teams Tap Builder Relationship Specialty Start Date End Date Keyla [place] [place] [address] PCP - General Family Practice 07/21/13 Rhina Moore, JAD [address] [place] [id number] Nurse Navigator - Oncology Registered Nurse 04/08/23 Josiane Pineda MBBS [address] [place] [address] Surgery - Urology 04/13/23
[2024-04-20 17:34] VITALS: BP 161/81; PULSE 83; RESP 12; O2SAT 99
== END 2024-04-20 17:55 | disposition home or self-care (01) ==
PROVIDERS: Emergency Provider Family Medicine; PCP Family Medicine
DX: S92.404A Nondisplaced unspecified fracture of right great toe, initial encounter for closed fracture (principal); W22.8XXA Striking against or struck by other objects, initial encounter
CPT/HCPCS: 73660; 99283; 99284

== ENCOUNTER 2024-12-02 08:33 | Emergency (ER) | payer MEDICARE, SELFPAY ==
[2024-12-02 08:43] VITALS: BP 156/74; PULSE 74; RESP 16; TEMP 36.8; O2SAT 98; BMI 25.5
--- NOTE | 2024-12-02 08:53 | CRLHL7_ITS ---
For Patients: As a result of the Century Cures Act, medical imaging exams and procedure reports are released immediately into your electronic medical record. You may view this report before your referring provider. If you have questions, please contact your health care provider. INDICATION: Injury COMPARISON: February 11, 2022 in December 06, 2021 TECHNIQUE: CT examination of the cervical spine is performed without contrast using spiral technique. Thin axial, sagittal and coronal reconstructions were made. Please note that all CT scans at this facility use dose modulation, iterative reconstruction, and/or weight-based dosing when appropriate to reduce radiation dose to as low as reasonably achievable. FINDINGS: : Alignment is remarkable for straightening which is usually due to muscle spasm or positioning. 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 There is minimal loss of height of the superior endplate of T1. This appears to represent a change since the prior 2 studies there is unclear whether this is acute. Correlate with point tenderness in this area and consider additional imaging dedicated to the thoracic spine as appropriate. IMPRESSION: 1. Straightening likely due to muscle spasm or positioning. 2. Degenerative changes. 3. There is minimal loss of the superior endplate of T1 which represents a change since prior studies. I do not see a direct osseous discontinuity. The age of this is indeterminate but could be acute or subacute. Correlate with point tenderness in this area. Consider additional imaging of the thoracic spine if appropriate clinically Please note that all CT scans at this facility use dose modulation, iterative reconstruction, and/or weight-based dosing when appropriate to reduce radiation dose to as low as reasonably achievable. Dictated by Richard Feliciano MD @ 12/02/2024 9:28:36 AM (Electronically Signed)
--- NOTE | 2024-12-02 08:53 | CRLHL7_ITS ---
For Patients: As a result of the Century Cures Act, medical imaging exams and procedure reports are released immediately into your electronic medical record. You may view this report before your referring provider. If you have questions, please contact your health care provider. INDICATION: Injury COMPARISON: June 21, 2022 TECHNIQUE: CT examination of the head was performed as axial sections without intravenous contrast. Images were obtained from the vertex of the skull through the skull base. Please note that all CT scans at this facility use dose modulation, iterative reconstruction, and/or weight-based dosing when appropriate to reduce radiation dose to as low as reasonably achievable. FINDINGS: There are limitations due to motion. Within these limitations, the brain shows no sign of mass lesion, mass effect, hemorrhage, or edema. There are involutional changes. There is moderate cortical atrophy and there is moderate white matter disease. There is no hydrocephalus. The visualized portions of the orbits are normal in appearance. The osseous structures are normal in appearance with no sign of abnormality in the skull base or calvarium. IMPRESSION: Limitations due to motion. Within these limitations, there is no visible acute intracranial posttraumatic findings. There is atrophy and white matter disease. Please note that all CT scans at this facility use dose modulation, iterative reconstruction, and/or weight-based dosing when appropriate to reduce radiation dose to as low as reasonably achievable. Dictated by Richard Feliciano MD @ 12/02/2024 9:13:43 AM (Electronically Signed)
[2024-12-02 09:45] LABS: Lactate* 0.8 mmol/L (0.5-1.9)
[2024-12-02 09:52] LABS: Basophils Percent Auto 1.6 % (0.0-3.0); Eosinophils Percent Auto 2.5 % (0.0-7.0); Hematocrit 33.6 % (33.0-51.0); Lymphocytes Percent Auto 26.1 % (20-44); Mean Corpuscular HGB Conc 33 gm/dL (32-36); Mean Corpuscular Hemoglobin 34 pg (26-34); Mean Corpuscular Volume 104 fL (80-100); Monocytes Percent Auto 14.5 % (0.0-11.0); Neutrophils Percent Auto 55.3 % (42.0-72.0); Platelet Count* 405 K/uL (140-440); RDW Coefficient of Variation % 22.7 % (11.5-15.5); Red Blood Count 3.24 m/uL (4.00-5.20); White Blood Count* 4.48 K/uL (4.50-11.00)
[2024-12-02 09:54] LABS: Slide Review Reflex No
[2024-12-02 10:08] LABS: Mono Screen* Negative (Negative)
[2024-12-02 10:09] LABS: Albumin* 4.1 g/dL (3.3-5.0); Chloride* 107 mmol/L (96-114)
[2024-12-02 10:10] LABS: Potassium* 4.1 mmol/L (3.6-5.1); Sodium* 140 mmol/L (135-149)
[2024-12-02 10:11] LABS: Creatinine* 0.6 mg/dL (0.5-1.5); Est. Creatinine Clearance* 34.62; Estimated Glomerular Filt Rate 87 ml/min
[2024-12-02 10:12] LABS: Alkaline Phosphatase* 70 U/L (40-150); Anion Gap 6 mEq/L (7-15); Aspartate Amino Transferase* 17 U/L (12-35); Bilirubin Direct* 0.1 mg/dL (0.0-0.5); Bilirubin Total* 1.2 mg/dL (0.1-1.5); Carbon Dioxide* 27 mmol/L (20-32); Total Protein* 6.6 g/dL (6.0-8.3)
[2024-12-02 10:13] LABS: Alanine Aminotransferase* 14 U/L (4-35); Blood Urea Nitrogen* 11 mg/dL (7-30); Calcium* 9.3 mg/dL (8.4-10.6); Glucose* 92 mg/dL (60-115)
[2024-12-02 10:33] LABS: C Reactive Protein* < 0.5 mg/dL (0.5-1.0); Troponin I* < 0.01 ng/mL (0.01-0.04)
[2024-12-02 10:36] LABS: PCR FLU A Negative PCR FLU A (Negative); PCR FLU B Negative PCR FLU B (Negative); SARS PCR* Negative SARS-CoV-2 (Negative)
[2024-12-02 11:46] LABS: Appearance Urine Slightly Cloudy (Clear); Bilirubin Urine Negative (Negative); Blood Urine Negative (Negative); Color Urine Dark yellow (Yellow); Glucose Urine Negative (Negative); Ketones Urine Negative (Negative); Leukocyte Esterase Urine Trace (Negative); Nitrite Urine Negative (Negative); Protein Urine Trace (Negative); Urobilinogen Urine 0.2 (0.2-1.0)
--- NOTE | 2024-12-02 11:47 | ED.GENADULT ---
HPI - General Adult General Chief complaint: Head Injury/Pain Stated complaint: Fall 729, hit head Time Seen by Provider: 12/02/24 09:36 Source: patient and family Mode of arrival: ambulatory Limitations: no limitations History of Present Illness HPI narrative: Patient is an 88-year-old female presenting today after falling at home. She states that she was getting up in the morning going to the bathroom the pressure teeth and do her usual activities of daily living when all of a sudden she found herself on the floor. She is not sure how she fell, but feels certain that she hit her head when she hit the ground. She states that she was able to get up without assistance. She uses a walker when she gets around in the morning she did have her walker when she fell this morning. She denies headache or neck pain. She denies confusion, blurry vision, changes in her hearing. She is concerned because she has a history of anemia so she is wondering if her anemia caused her to faint. She denies back pain, buttocks pain or pain of the extremities. She is on a daily aspirin, no other blood thinners. 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 She lives independently. TTA was called on arrival. Related Data Home Medications ?Medication ?Instructions ?Recorded ?Confirmed aspirin 81 mg tablet,delayed 81 mg PO QDAY 06/14/24 06/14/24 release calcium carbonate 500 mg PO QDAY 06/14/24 06/14/24 Allergies Allergy/AdvReac Type Severity Reaction Status Date / Time diphenhydramine (From Allergy Intermediate Verified 06/14/24 10:23 Benadryl) Sulfa (Sulfonamide Allergy Intermediate Verified 06/14/24 10:23 Antibiotics) Penicillins Allergy Unknown Verified 06/14/24 10:23 lisinopril Allergy Verified 06/14/24 10:23 Review of Systems Status of ROS: Reports: 10 or more systems reviewed and unremarkable except as noted in History and below [facility] Medical History Osteoarthritis of left knee ?M17.12 - Unilateral primary osteoarthritis, left knee (ICD-10) Surgical History History of foot surgery ?Z98.890 - Other specified postprocedural states (ICD-10) History of tonsillectomy (1943) ?Z90.89 - Acquired absence of other organs (ICD-10) History of cystoscopy ?Z98.890 - Other specified postprocedural states (ICD-10) History of phacoemulsification of cataract of both eyes with intraocular lens implantation ?Z98.41 - Cataract extraction status, right eye (ICD-10) ?Z98.42 - Cataract extraction status, left eye (ICD-10) ?Z96.1 - Presence of intraocular lens (ICD-10) Social History Narrative: former smoker-quit 1956 Smoking Status: Former smoker What tobacco products do you use: cigarettes Smoking quit date/years: >15 years ago Do you use any of these nicotine containing products: None Second hand tobacco smoke exposure: No How often do you have a drink containing alcohol: 2-4 times a month How many standard drinks containing alcohol do you have on a typical day: 1 or 2 How often do you have six or more drinks on one occasion: Never AUDIT-C Alcohol total score: 2 Non-prescribed substance use: denies use service: No Exam Narrative: Exam Narrative: Well-nourished well-developed elderly patient in no acute distress. Alert and oriented x3. Answers questions appropriately. Mood and affect are appropriate. Thoughts are goal oriented and rational. No tangential or magical thinking noted. Patient speaks in full sentences without needing to catch her breath. GCS is 15. Patient is speaking and breathing without difficulty. There is no obvious bleeding noted. HEENT: Normocephalic atraumatic - no evidence of head trauma noted. Pupils are equally round reactive to light. Extraocular muscles are intact. Conjunctivae are moist without any icterus noted. Moist mucous membranes. Posterior pharynx is normal. No trauma noted to the inside of the mouth. Neck is soft without any lymphadenopathy or thyromegaly. No masses are appreciated. Cardiovascular: Heart is regular rate and rhythm S1 and S2 are present without any murmurs. Lungs: Clear to auscultation bilaterally no wheezes rhonchi or rales are appreciated. Patient takes deep breaths without any discomfort. Patient has no tenderness to palpation of the anterior, lateral posterior chest wall. Abdomen: Soft and nontender nondistended with normal bowel sounds. Extremities: Bilateral lower extremities are without edema. Skin: Well perfused without any obvious rashes. Back: Normal appearance. Patient has no tenderness to palpation at the cervical, thoracic or lumbar spine. Patient has full range of motion at the neck with flexion, extension, side way bending and rotation without pain. Const: Vital Signs, click to edit/add: Vital Signs - 24 hr 12/02/24 08:43 Temperature 98.2 F Pulse Rate [Pulse Oximeter] 74 Respiratory Rate 16 Blood Pressure [Ri ght Upper Arm] 156/74 H Pulse Oximetry 98 Oxygen Delivery Me thod Room Air Course Course ED Course: Head and neck CT were obtained given history of unwitnessed fall. Both were unremarkable. There was a question about a potential abnormality at T1. However a re-examine the patient at this time and applied specific pressure in the area and she does not have any tenderness. EKG, read by me, shows normal sinus rhythm with a pulse of 72. CBC showed mild anemia with a hemoglobin of 11. Chemistries are unremarkable. Normal glucose at 92. Normal LFTs. Normal troponin. Normal CRP. Negative COVID and influenza screening. Negative mono. Ethyl alcohol 0. UA showing trace leukocyte esterase. Discussed that it would be nice to have someone with her for the next few days before that she does not have any more recurrent episodes of falling. I also recommend she follow-up with your primary care provider this coming week for recheck. We discussed the possibility of needing a heart monitor should she have another episode of unexplained falling or syncope. Vital Signs Vital signs: Initial Vital Signs Temperature 98.2 F 12/02/24 08:43 Temperature Source Temporal Artery Scan 12/02/24 08:43 Pulse Rate 74 12/02/24 08:43 Pulse Rhythm Regular 12/02/24 08:43 Respiratory Rate 16 12/02/24 08:43 Blood Pressure 156/74 H 12/02/24 08:43 Blood Pressure Mean 101 12/02/24 08:43 Blood Pressure Position Sitting 12/02/24 08:43 Pulse Oximetry 98 12/02/24 08:43 Oxygen Delivery Method Room Air 12/02/24 08:43 Vital Signs Temperature 98.2 F 12/02/24 08:43 Pulse Rate 74 12/02/24 08:43 Respiratory Rate 16 12/02/24 08:43 Blood Pressure 156/74 H 12/02/24 08:43 Pulse Oximetry 98 12/02/24 08:43 Oxygen Delivery Method Room Air 12/02/24 08:43 Temperature 98.2 F 12/02/24 08:43 Pulse Rate 74 12/02/24 08:43 Respiratory Rate 16 12/02/24 08:43 Blood Pressure 156/74 H 12/02/24 08:43 Pulse Oximetry 98 12/02/24 08:43 Oxygen Delivery Method Room Air 12/02/24 08:43 Medical Decision Making MDM Narrative Medical decision making narrative: 88-year-old female status post fall, closed head injury. Unclear the etiology of her fall at this time. Patient will follow-up with primary care to discuss the need of heart monitor or further testing. Lab Data Lab results reviewed: Yes I reviewed the patient's lab results Labs: Lab Results 12/02/24 12/02/24 12/02/24 Range/Units 09:22 09:22 09:22 WBC 4.48 L Cancelled (4.50-11.00) K/uL Corrected WBC Cancelled RBC 3.24 L Cancelled (4.00-5.20) m/uL Hgb 11.0 L (12.0-16.0) gm/dL Hct (33.0-51.0) % MCV (80-100) fL MCH (26-34) pg MCHC (32-36) gm/dL RDW Coeff of Capri (11.5-15.5) % Plt Count (140-440) K/uL Neut % (Auto) (42.0-72.0) % Lymph % (Auto) (20-44) % [place] % (Auto) (0.0-11.0) % Eos % (Auto) (0.0-7.0) % Baso % (Auto) (0.0-3.0) % Neut # (Auto) (1.7-7.0) K/uL Lymph # (Auto) (0.90-2.90) K/uL [place] # (Auto) (0.00-0.90) K/UL Eos # (Auto) (0.00-0.50) K/uL Baso # (Auto) (0.00-0.30) K/uL Abs Immat Gran (auto) (0.00-0.30) K/uL Imm/Tot Granulo (auto) % Sodium Potassium Chloride Carbon Dioxide Anion Gap BUN Creatinine Estimated Creat Clear Estimated GFR Glucose Lactate (0.5-1.9) mmol/L Calcium Magnesium (1.5-2.6) mg/dL Total Bilirubin (0.1-1.5) mg/dL Direct Bilirubin (0.0-0.5) mg/dL AST (12-35) U/L ALT (4-35) U/L Alkaline Phosphatase (40-150) U/L Troponin I (0.01-0.04) ng/mL C-Reactive Protein (0.5-1.0) mg/dL Total Protein (6.0-8.3) g/dL Albumin (3.3-5.0) g/dL Urine Color (Yellow) Urine Appearance (Clear) Urine pH (5.0-8.5) Ur Specific [place] (1.000-1.030) Urine Protein (Negative) Urine Glucose (UA) (Negative) Urine Ketones (Negative) Urine Blood (Negative) Urine Nitrite (Negative) Urine Bilirubin (Negative) Urine Urobilinogen (0.2-1.0) Ur Leukocyte Esterase (Negative) Urine RBC (0-2) Urine WBC (0-5) Ur Squamous Epith Cells (None-Few) Urine Bacteria (None) Ethyl Alcohol (0.01-0.03) % SARS-CoV-2 (PCR) (Negative) Monoscreen (Negative) Influenza Type A (PCR) (Negative) Influenza Type B (PCR) (Negative) 12/02/24 12/02/24 12/02/24 Range/Units 09:22 09:22 09:22 WBC (4.50-11.00) K/uL Corrected WBC RBC (4.00-5.20) m/uL Hgb Cancelled (12.0-16.0) gm/dL Hct 33.6 Cancelled (33.0-51.0) % MCV 104 H Cancelled (80-100) fL MCH 34 (26-34) pg MCHC (32-36) gm/dL RDW Coeff of Capri (11.5-15.5) % Plt Count (140-440) K/uL Neut % (Auto) (42.0-72.0) % Lymph % (Auto) (20-44) % [place] % (Auto) (0.0-11.0) % Eos % (Auto) (0.0-7.0) % Baso % (Auto) (0.0-3.0) % Neut # (Auto) (1.7-7.0) K/uL Lymph # (Auto) (0.90-2.90) K/uL [place] # (Auto) (0.00-0.90) K/UL Eos # (Auto) (0.00-0.50) K/uL Baso # (Auto) (0.00-0.30) K/uL Abs Immat Gran (auto) (0.00-0.30) K/uL Imm/Tot Granulo (auto) % Sodium Potassium Chloride Carbon Dioxide Anion Gap BUN Creatinine Estimated Creat Clear Estimated GFR Glucose Lactate (0.5-1.9) mmol/L Calcium Magnesium (1.5-2.6) mg/dL Total Bilirubin (0.1-1.5) mg/dL Direct Bilirubin (0.0-0.5) mg/dL AST (12-35) U/L ALT (4-35) U/L Alkaline Phosphatase (40-150) U/L Troponin I (0.01-0.04) ng/mL C-Reactive Protein (0.5-1.0) mg/dL Total Protein (6.0-8.3) g/dL Albumin (3.3-5.0) g/dL Urine Color (Yellow) Urine Appearance (Clear) Urine pH (5.0-8.5) Ur Specific [place] (1.000-1.030) Urine Protein (Negative) Urine Glucose (UA) (Negative) Urine Ketones (Negative) Urine Blood (Negative) Urine Nitrite (Negative) Urine Bilirubin (Negative) Urine Urobilinogen (0.2-1.0) Ur Leukocyte Esterase (Negative) Urine RBC (0-2) Urine WBC (0-5) Ur Squamous Epith Cells (None-Few) Urine Bacteria (None) Ethyl Alcohol (0.01-0.03) % SARS-CoV-2 (PCR) (Negative) Monoscreen (Negative) Influenza Type A (PCR) (Negative) Influenza Type B (PCR) (Negative) 12/02/24 12/02/24 12/02/24 Range/Units 09:22 09:22 09:22 WBC (4.50-11.00) K/uL Corrected WBC RBC (4.00-5.20) m/uL Hgb (12.0-16.0) gm/dL Hct (33.0-51.0) % MCV (80-100) fL MCH Cancelled (26-34) pg MCHC 33 Cancelled (32-36) gm/dL RDW Coeff of Capri 22.7 H Cancelled (11.5-15.5) % Plt Count 405 (140-440) K/uL Neut % (Auto) (42.0-72.0) % Lymph % (Auto) (20-44) % [place] % (Auto) (0.0-11.0) % Eos % (Auto) (0.0-7.0) % Baso % (Auto) (0.0-3.0) % Neut # (Auto) (1.7-7.0) K/uL Lymph # (Auto) (0.90-2.90) K/uL [place] # (Auto) (0.00-0.90) K/UL Eos # (Auto) (0.00-0.50) K/uL Baso # (Auto) (0.00-0.30) K/uL Abs Immat Gran (auto) (0.00-0.30) K/uL Imm/Tot Granulo (auto) % Sodium Potassium Chloride Carbon Dioxide Anion Gap BUN Creatinine Estimated Creat Clear Estimated GFR Glucose Lactate (0.5-1.9) mmol/L Calcium Magnesium (1.5-2.6) mg/dL Total Bilirubin (0.1-1.5) mg/dL Direct Bilirubin (0.0-0.5) mg/dL AST (12-35) U/L ALT (4-35) U/L Alkaline Phosphatase (40-150) U/L Troponin I (0.01-0.04) ng/mL C-Reactive Protein (0.5-1.0) mg/dL Total Protein (6.0-8.3) g/dL Albumin (3.3-5.0) g/dL Urine Color (Yellow) Urine Appearance (Clear) Urine pH (5.0-8.5) Ur Specific [place] (1.000-1.030) Urine Protein (Negative) Urine Glucose (UA) (Negative) Urine Ketones (Negative) Urine Blood (Negative) Urine Nitrite (Negative) Urine Bilirubin (Negative) Urine Urobilinogen (0.2-1.0) Ur Leukocyte Esterase (Negative) Urine RBC (0-2) Urine WBC (0-5) Ur Squamous Epith Cells (None-Few) Urine Bacteria (None) Ethyl Alcohol (0.01-0.03) % SARS-CoV-2 (PCR) (Negative) Monoscreen (Negative) Influenza Type A (PCR) (Negative) Influenza Type B (PCR) (Negative) 12/02/24 12/02/24 12/02/24 Range/Units 09:22 09:22 09:22 WBC (4.50-11.00) K/uL Corrected WBC RBC (4.00-5.20) m/uL Hgb (12.0-16.0) gm/dL Hct (33.0-51.0) % MCV (80-100) fL MCH (26-34) pg MCHC (32-36) gm/dL RDW Coeff of Capri (11.5-15.5) % Plt Count Cancelled (140-440) K/uL Neut % (Auto) 55.3 Cancelled (42.0-72.0) % Lymph % (Auto) 26.1 Cancelled (20-44) % [place] % (Auto) 14.5 H (0.0-11.0) % Eos % (Auto) (0.0-7.0) % Baso % (Auto) (0.0-3.0) % Neut # (Auto) (1.7-7.0) K/uL Lymph # (Auto) (0.90-2.90) K/uL [place] # (Auto) (0.00-0.90) K/UL Eos # (Auto) (0.00-0.50) K/uL Baso # (Auto) (0.00-0.30) K/uL Abs Immat Gran (auto) (0.00-0.30) K/uL Imm/Tot Granulo (auto) % Sodium Potassium Chloride Carbon Dioxide Anion Gap BUN Creatinine Estimated Creat Clear Estimated GFR Glucose Lactate (0.5-1.9) mmol/L Calcium Magnesium (1.5-2.6) mg/dL Total Bilirubin (0.1-1.5) mg/dL Direct Bilirubin (0.0-0.5) mg/dL AST (12-35) U/L ALT (4-35) U/L Alkaline Phosphatase (40-150) U/L Troponin I (0.01-0.04) ng/mL C-Reactive Protein (0.5-1.0) mg/dL Total Protein (6.0-8.3) g/dL Albumin (3.3-5.0) g/dL Urine Color (Yellow) Urine Appearance (Clear) Urine pH (5.0-8.5) Ur Specific [place] (1.000-1.030) Urine Protein (Negative) Urine Glucose (UA) (Negative) Urine Ketones (Negative) Urine Blood (Negative) Urine Nitrite (Negative) Urine Bilirubin (Negative) Urine Urobilinogen (0.2-1.0) Ur Leukocyte Esterase (Negative) Urine RBC (0-2) Urine WBC (0-5) Ur Squamous Epith Cells (None-Few) Urine Bacteria (None) Ethyl Alcohol (0.01-0.03) % SARS-CoV-2 (PCR) (Negative) Monoscreen (Negative) Influenza Type A (PCR) (Negative) Influenza Type B (PCR) (Negative) 12/02/24 12/02/24 12/02/24 Range/Units 09:22 09:22 09:22 WBC (4.50-11.00) K/uL Corrected WBC RBC (4.00-5.20) m/uL Hgb (12.0-16.0) gm/dL Hct (33.0-51.0) % MCV (80-100) fL MCH (26-34) pg MCHC (32-36) gm/dL RDW Coeff of Capri (11.5-15.5) % Plt Count (140-440) K/uL Neut % (Auto) (42.0-72.0) % Lymph % (Auto) (20-44) % [place] % (Auto) Cancelled (0.0-11.0) % Eos % (Auto) 2.5 Cancelled (0.0-7.0) % Baso % (Auto) 1.6 Cancelled (0.0-3.0) % Neut # (Auto) 2.50 (1.7-7.0) K/uL Lymph # (Auto) (0.90-2.90) K/uL [place] # (Auto) (0.00-0.90) K/UL Eos # (Auto) (0.00-0.50) K/uL Baso # (Auto) (0.00-0.30) K/uL Abs Immat Gran (auto) (0.00-0.30) K/uL Imm/Tot Granulo (auto) % Sodium Potassium Chloride Carbon Dioxide Anion Gap BUN Creatinine Estimated Creat Clear Estimated GFR Glucose Lactate (0.5-1.9) mmol/L Calcium Magnesium (1.5-2.6) mg/dL Total Bilirubin (0.1-1.5) mg/dL Direct Bilirubin (0.0-0.5) mg/dL AST (12-35) U/L ALT (4-35) U/L Alkaline Phosphatase (40-150) U/L Troponin I (0.01-0.04) ng/mL C-Reactive Protein (0.5-1.0) mg/dL Total Protein (6.0-8.3) g/dL Albumin (3.3-5.0) g/dL Urine Color (Yellow) Urine Appearance (Clear) Urine pH (5.0-8.5) Ur Specific [place] (1.000-1.030) Urine Protein (Negative) Urine Glucose (UA) (Negative) Urine Ketones (Negative) Urine Blood (Negative) Urine Nitrite (Negative) Urine Bilirubin (Negative) Urine Urobilinogen (0.2-1.0) Ur Leukocyte Esterase (Negative) Urine RBC (0-2) Urine WBC (0-5) Ur Squamous Epith Cells (None-Few) Urine Bacteria (None) Ethyl Alcohol (0.01-0.03) % SARS-CoV-2 (PCR) (Negative) Monoscreen (Negative) Influenza Type A (PCR) (Negative) Influenza Type B (PCR) (Negative) 12/02/24 12/02/24 12/02/24 Range/Units 09:22 09:22 09:22 WBC (4.50-11.00) K/uL Corrected WBC RBC (4.00-5.20) m/uL Hgb (12.0-16.0) gm/dL Hct (33.0-51.0) % MCV (80-100) fL MCH (26-34) pg MCHC (32-36) gm/dL RDW Coeff of Capri (11.5-15.5) % Plt Count (140-440) K/uL Neut % (Auto) (42.0-72.0) % Lymph % (Auto) (20-44) % [place] % (Auto) (0.0-11.0) % Eos % (Auto) (0.0-7.0) % Baso % (Auto) (0.0-3.0) % Neut # (Auto) Cancelled (1.7-7.0) K/uL Lymph # (Auto) 1.20 Cancelled (0.90-2.90) K/uL [place] # (Auto) 0.60 Cancelled (0.00-0.90) K/UL Eos # (Auto) 0.10 (0.00-0.50) K/uL Baso # (Auto) (0.00-0.30) K/uL Abs Immat Gran (auto) (0.00-0.30) K/uL Imm/Tot Granulo (auto) % Sodium Potassium Chloride Carbon Dioxide Anion Gap BUN Creatinine Estimated Creat Clear Estimated GFR Glucose Lactate (0.5-1.9) mmol/L Calcium Magnesium (1.5-2.6) mg/dL Total Bilirubin (0.1-1.5) mg/dL Direct Bilirubin (0.0-0.5) mg/dL AST (12-35) U/L ALT (4-35) U/L Alkaline Phosphatase (40-150) U/L Troponin I (0.01-0.04) ng/mL C-Reactive Protein (0.5-1.0) mg/dL Total Protein (6.0-8.3) g/dL Albumin (3.3-5.0) g/dL Urine Color (Yellow) Urine Appearance (Clear) Urine pH (5.0-8.5) Ur Specific [place] (1.000-1.030) Urine Protein (Negative) Urine Glucose (UA) (Negative) Urine Ketones (Negative) Urine Blood (Negative) Urine Nitrite (Negative) Urine Bilirubin (Negative) Urine Urobilinogen (0.2-1.0) Ur Leukocyte Esterase (Negative) Urine RBC (0-2) Urine WBC (0-5) Ur Squamous Epith Cells (None-Few) Urine Bacteria (None) Ethyl Alcohol (0.01-0.03) % SARS-CoV-2 (PCR) (Negative) Monoscreen (Negative) Influenza Type A (PCR) (Negative) Influenza Type B (PCR) (Negative) 12/02/24 12/02/24 12/02/24 Range/Units 09:22 09:22 09:22 WBC (4.50-11.00) K/uL Corrected WBC RBC (4.00-5.20) m/uL Hgb (12.0-16.0) gm/dL Hct (33.0-51.0) % MCV (80-100) fL MCH (26-34) pg MCHC (32-36) gm/dL RDW Coeff of [place]ri (11.5-15.5) % Plt Count (140-440) K/uL Neut % (Auto) (42.0-72.0) % Lymph % (Auto) (20-44) % [place] % (Auto) (0.0-11.0) % Eos % (Auto) (0.0-7.0) % Baso % (Auto) (0.0-3.0) % Neut # (Auto) (1.7-7.0) K/uL Lymph # (Auto) (0.90-2.90) K/uL [place] # (Auto) (0.00-0.90) K/UL Eos # (Auto) Cancelled (0.00-0.50) K/uL Baso # (Auto) 0.10 Cancelled (0.00-0.30) K/uL Abs Immat Gran (auto) 0.00 Cancelled (0.00-0.30) K/uL Imm/Tot Granulo (auto) 0.0 % Sodium Potassium Chloride Carbon Dioxide Anion Gap BUN Creatinine Estimated Creat Clear Estimated GFR Glucose Lactate (0.5-1.9) mmol/L Calcium Magnesium (1.5-2.6) mg/dL Total Bilirubin (0.1-1.5) mg/dL Direct Bilirubin (0.0-0.5) mg/dL AST (12-35) U/L ALT (4-35) U/L Alkaline Phosphatase (40-150) U/L Troponin I (0.01-0.04) ng/mL C-Reactive Protein (0.5-1.0) mg/dL Total Protein (6.0-8.3) g/dL Albumin (3.3-5.0) g/dL Urine Color (Yellow) Urine Appearance (Clear) Urine pH (5.0-8.5) Ur Specific [place] (1.000-1.030) Urine Protein (Negative) Urine Glucose (UA) (Negative) Urine Ketones (Negative) Urine Blood (Negative) Urine Nitrite (Negative) Urine Bilirubin (Negative) Urine Urobilinogen (0.2-1.0) Ur Leukocyte Esterase (Negative) Urine RBC (0-2) Urine WBC (0-5) Ur Squamous Epith Cells (None-Few) Urine Bacteria (None) Ethyl Alcohol (0.01-0.03) % SARS-CoV-2 (PCR) (Negative) Monoscreen (Negative) Influenza Type A (PCR) (Negative) Influenza Type B (PCR) (Negative) 12/02/24 12/02/24 12/02/24 Range/Units 09:22 09:22 09:22 WBC (4.50-11.00) K/uL Corrected WBC RBC (4.00-5.20) m/uL Hgb (12.0-16.0) gm/dL Hct (33.0-51.0) % MCV (80-100) fL MCH (26-34) pg MCHC (32-36) gm/dL RDW Coeff of [place]ri (11.5-15.5) % Plt Count (140-440) K/uL Neut % (Auto) (42.0-72.0) % Lymph % (Auto) (20-44) % [place] % (Auto) (0.0-11.0) % Eos % (Auto) (0.0-7.0) % Baso % (Auto) (0.0-3.0) % Neut # (Auto) (1.7-7.0) K/uL Lymph # (Auto) (0.90-2.90) K/uL [place] # (Auto) (0.00-0.90) K/UL Eos # (Auto) (0.00-0.50) K/uL Baso # (Auto) (0.00-0.30) K/uL Abs Immat Gran (auto) (0.00-0.30) K/uL Imm/Tot Granulo (auto) Cancelled % Sodium Cancelled 140 Potassium Cancelled 4.1 Chloride Cancelled Carbon Dioxide Anion Gap BUN Creatinine Estimated Creat Clear Estimated GFR Glucose Lactate (0.5-1.9) mmol/L Calcium Magnesium (1.5-2.6) mg/dL Total Bilirubin (0.1-1.5) mg/dL Direct Bilirubin (0.0-0.5) mg/dL AST (12-35) U/L ALT (4-35) U/L Alkaline Phosphatase (40-150) U/L Troponin I (0.01-0.04) ng/mL C-Reactive Protein (0.5-1.0) mg/dL Total Protein (6.0-8.3) g/dL Albumin (3.3-5.0) g/dL Urine Color (Yellow) Urine Appearance (Clear) Urine pH (5.0-8.5) Ur Specific [place] (1.000-1.030) Urine Protein (Negative) Urine Glucose (UA) (Negative) Urine Ketones (Negative) Urine Blood (Negative) Urine Nitrite (Negative) Urine Bilirubin (Negative) Urine Urobilinogen (0.2-1.0) Ur Leukocyte Esterase (Negative) Urine RBC (0-2) Urine WBC (0-5) Ur Squamous Epith Cells (None-Few) Urine Bacteria (None) Ethyl Alcohol (0.01-0.03) % SARS-CoV-2 (PCR) (Negative) Monoscreen (Negative) Influenza Type A (PCR) (Negative) Influenza Type B (PCR) (Negative) 12/02/24 12/02/24 12/02/24 Range/Units 09:22 09:22 09:22 WBC (4.50-11.00) K/uL Corrected WBC RBC (4.00-5.20) m/uL Hgb (12.0-16.0) gm/dL Hct (33.0-51.0) % MCV (80-100) fL MCH (26-34) pg MCHC (32-36) gm/dL RDW Coeff of [place]ri (11.5-15.5) % Plt Count (140-440) K/uL Neut % (Auto) (42.0-72.0) % Lymph % (Auto) (20-44) % [place] % (Auto) (0.0-11.0) % Eos % (Auto) (0.0-7.0) % Baso % (Auto) (0.0-3.0) % Neut # (Auto) (1.7-7.0) K/uL Lymph # (Auto) (0.90-2.90) K/uL [place] # (Auto) (0.00-0.90) K/UL Eos # (Auto) (0.00-0.50) K/uL Baso # (Auto) (0.00-0.30) K/uL Abs Immat Gran (auto) (0.00-0.30) K/uL Imm/Tot Granulo (auto) % Sodium Potassium Chloride 107 Carbon Dioxide Cancelled 27 Anion Gap Cancelled 6 L BUN Cancelled Creatinine Estimated Creat Clear Estimated GFR Glucose Lactate (0.5-1.9) mmol/L Calcium Magnesium (1.5-2.6) mg/dL Total Bilirubin (0.1-1.5) mg/dL Direct Bilirubin (0.0-0.5) mg/dL AST (12-35) U/L ALT (4-35) U/L Alkaline Phosphatase (40-150) U/L Troponin I (0.01-0.04) ng/mL C-Reactive Protein (0.5-1.0) mg/dL Total Protein (6.0-8.3) g/dL Albumin (3.3-5.0) g/dL Urine Color (Yellow) Urine Appearance (Clear) Urine pH (5.0-8.5) Ur Specific [place] (1.000-1.030) Urine Protein (Negative) Urine Glucose (UA) (Negative) Urine Ketones (Negative) Urine Blood (Negative) Urine Nitrite (Negative) Urine Bilirubin (Negative) Urine Urobilinogen (0.2-1.0) Ur Leukocyte Esterase (Negative) Urine RBC (0-2) Urine WBC (0-5) Ur Squamous Epith Cells (None-Few) Urine Bacteria (None) Ethyl Alcohol (0.01-0.03) % SARS-CoV-2 (PCR) (Negative) Monoscreen (Negative) Influenza Type A (PCR) (Negative) Influenza Type B (PCR) (Negative) 12/02/24 12/02/24 12/02/24 Range/Units 09:22 09:22 09:22 WBC (4.50-11.00) K/uL Corrected WBC RBC (4.00-5.20) m/uL Hgb (12.0-16.0) gm/dL Hct (33.0-51.0) % MCV (80-100) fL MCH (26-34) pg MCHC (32-36) gm/dL RDW Coeff of [place] (11.5-15.5) % Plt Count (140-440) K/uL Neut % (Auto) (42.0-72.0) % Lymph % (Auto) (20-44) % [place] % (Auto) (0.0-11.0) % Eos % (Auto) (0.0-7.0) % Baso % (Auto) (0.0-3.0) % Neut # (Auto) (1.7-7.0) K/uL Lymph # (Auto) (0.90-2.90) K/uL [place] # (Auto) (0.00-0.90) K/UL Eos # (Auto) (0.00-0.50) K/uL Baso # (Auto) (0.00-0.30) K/uL Abs Immat Gran (auto) (0.00-0.30) K/uL Imm/Tot Granulo (auto) % Sodium Potassium Chloride Carbon Dioxide Anion Gap BUN 11 Creatinine Cancelled 0.6 Estimated Creat Clear Cancelled 34.62 Estimated GFR Cancelled Glucose Lactate (0.5-1.9) mmol/L Calcium Magnesium (1.5-2.6) mg/dL Total Bilirubin (0.1-1.5) mg/dL Direct Bilirubin (0.0-0.5) mg/dL AST (12-35) U/L ALT (4-35) U/L Alkaline Phosphatase (40-150) U/L Troponin I (0.01-0.04) ng/mL C-Reactive Protein (0.5-1.0) mg/dL Total Protein (6.0-8.3) g/dL Albumin (3.3-5.0) g/dL Urine Color (Yellow) Urine Appearance (Clear) Urine pH (5.0-8.5) Ur Specific [place] (1.000-1.030) Urine Protein (Negative) Urine Glucose (UA) (Negative) Urine Ketones (Negative) Urine Blood (Negative) Urine Nitrite (Negative) Urine Bilirubin (Negative) Urine Urobilinogen (0.2-1.0) Ur Leukocyte Esterase (Negative) Urine RBC (0-2) Urine WBC (0-5) Ur Squamous Epith Cells (None-Few) Urine Bacteria (None) Ethyl Alcohol (0.01-0.03) % SARS-CoV-2 (PCR) (Negative) Monoscreen (Negative) Influenza Type A (PCR) (Negative) Influenza Type B (PCR) (Negative) 12/02/24 12/02/24 12/02/24 Range/Units 09:22 09:22 09:22 WBC (4.50-11.00) K/uL Corrected WBC RBC (4.00-5.20) m/uL Hgb (12.0-16.0) gm/dL Hct (33.0-51.0) % MCV (80-100) fL MCH (26-34) pg MCHC (32-36) gm/dL RDW Coeff of [place] (11.5-15.5) % Plt Count (140-440) K/uL Neut % (Auto) (42.0-72.0) % Lymph % (Auto) (20-44) % [place] % (Auto) (0.0-11.0) % Eos % (Auto) (0.0-7.0) % Baso % (Auto) (0.0-3.0) % Neut # (Auto) (1.7-7.0) K/uL Lymph # (Auto) (0.90-2.90) K/uL [place] # (Auto) (0.00-0.90) K/UL Eos # (Auto) (0.00-0.50) K/uL Baso # (Auto) (0.00-0.30) K/uL Abs Immat Gran (auto) (0.00-0.30) K/uL Imm/Tot Granulo (auto) % Sodium Potassium Chloride Carbon Dioxide Anion Gap BUN Creatinine Estimated Creat Clear Estimated GFR 87 Glucose Cancelled 92 Lactate 0.8 (0.5-1.9) mmol/L Calcium Cancelled 9.3 Magnesium 2.0 (1.5-2.6) mg/dL Total Bilirubin 1.2 (0.1-1.5) mg/dL Direct Bilirubin 0.1 (0.0-0.5) mg/dL AST 17 (12-35) U/L ALT 14 (4-35) U/L Alkaline Phosphatase 70 (40-150) U/L Troponin I < 0.01 L (0.01-0.04) ng/mL C-Reactive Protein (0.5-1.0) mg/dL Total Protein (6.0-8.3) g/dL Albumin (3.3-5.0) g/dL Urine Color (Yellow) Urine Appearance (Clear) Urine pH (5.0-8.5) Ur Specific [place] (1.000-1.030) Urine Protein (Negative) Urine Glucose (UA) (Negative) Urine Ketones (Negative) Urine Blood (Negative) Urine Nitrite (Negative) Urine Bilirubin (Negative) Urine Urobilinogen (0.2-1.0) Ur Leukocyte Esterase (Negative) Urine RBC (0-2) Urine WBC (0-5) Ur Squamous Epith Cells (None-Few) Urine Bacteria (None) Ethyl Alcohol (0.01-0.03) % SARS-CoV-2 (PCR) (Negative) Monoscreen (Negative) Influenza Type A (PCR) (Negative) Influenza Type B (PCR) (Negative) 12/02/24 12/02/24 12/02/24 Range/Units 09:22 09:36 11:36 WBC (4.50-11.00) K/uL Corrected WBC RBC (4.00-5.20) m/uL Hgb (12.0-16.0) gm/dL Hct (33.0-51.0) % MCV (80-100) fL MCH (26-34) pg MCHC (32-36) gm/dL RDW Coeff of [place] (11.5-15.5) % Plt Count (140-440) K/uL Neut % (Auto) (42.0-72.0) % Lymph % (Auto) (20-44) % [place] % (Auto) (0.0-11.0) % Eos % (Auto) (0.0-7.0) % Baso % (Auto) (0.0-3.0) % Neut # (Auto) (1.7-7.0) K/uL Lymph # (Auto) (0.90-2.90) K/uL [place] # (Auto) (0.00-0.90) K/UL Eos # (Auto) (0.00-0.50) K/uL Baso # (Auto) (0.00-0.30) K/uL Abs Immat Gran (auto) (0.00-0.30) K/uL Imm/Tot Granulo (auto) % Sodium Potassium Chloride Carbon Dioxide Anion Gap BUN Creatinine Estimated Creat Clear Estimated GFR Glucose Lactate (0.5-1.9) mmol/L Calcium Magnesium (1.5-2.6) mg/dL Total Bilirubin (0.1-1.5) mg/dL Direct Bilirubin (0.0-0.5) mg/dL AST (12-35) U/L ALT (4-35) U/L Alkaline Phosphatase (40-150) U/L Troponin I Cancelled (0.01-0.04) ng/mL C-Reactive Protein < 0.5 L (0.5-1.0) mg/dL Total Protein 6.6 (6.0-8.3) g/dL Albumin 4.1 (3.3-5.0) g/dL Urine Color Dark yellow (Yellow) Urine Appearance Slightly Cloudy A (Clear) Urine pH 7.0 (5.0-8.5) Ur Specific [place] 1.020 (1.000-1.030) Urine Protein Trace A (Negative) Urine Glucose (UA) Negative (Negative) Urine Ketones Negative (Negative) Urine Blood Negative (Negative) Urine Nitrite Negative (Negative) Urine Bilirubin Negative (Negative) Urine Urobilinogen 0.2 (0.2-1.0) Ur Leukocyte Esterase Trace A (Negative) Urine RBC 0-2 (0-2) Urine WBC 2-5 (0-5) Ur Squamous Epith Cells Few (None-Few) Urine Bacteria Few A (None) Ethyl Alcohol < 0.00 L (0.01-0.03) % SARS-CoV-2 (PCR) Negative SARS-CoV-2 (Negative) Monoscreen Negative (Negative) Influenza Type A (PCR) Negative PCR FLU A (Negative) Influenza Type B (PCR) Negative PCR FLU B (Negative) Imaging Data CT scan - head: Attestation: I have reviewed the pertinent imaging results. Radiologist's impression: FINDINGS: There are limitations due to motion. Within these limitations, the brain shows no sign of mass lesion, mass effect, hemorrhage, or edema. There are involutional changes. There is moderate cortical atrophy and there is moderate white matter disease. There is no hydrocephalus. The visualized portions of the orbits are normal in appearance. The osseous structures are normal in appearance with no sign of abnormality in the skull base or calvarium. IMPRESSION: Limitations due to motion. Within these limitations, there is no visible acute intracranial posttraumatic findings. There is atrophy and white matter disease. CT cervical spine: Attestation: I have reviewed the pertinent imaging results. Radiologist's impression: CT examination of the cervical spine is performed without contrast using spiral technique. Thin axial, sagittal and coronal reconstructions were made. Please note that all CT scans at this facility use dose modulation, iterative reconstruction, and/or weight-based dosing when appropriate to reduce radiation dose to as low as reasonably achievable. FINDINGS: : Alignment is remarkable for straightening which is usually due to muscle spasm or positioning. 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 There is minimal loss of height of the superior endplate of T1. This appears to represent a change since the prior 2 studies there is unclear whether this is acute. Correlate with point tenderness in this area and consider additional imaging dedicated to the thoracic spine as appropriate. IMPRESSION: 1. Straightening likely due to muscle spasm or positioning. 2. Degenerative changes. 3. There is minimal loss of the superior endplate of T1 which represents a change since prior studies. I do not see a direct osseous discontinuity. The age of this is indeterminate but could be acute or subacute. Correlate with point tenderness in this area. Consider additional imaging of the thoracic spine if appropriate clinically ECG Data Attestation: I personally reviewed and interpreted this ECG as follows: Discharge Plan Discharge Clinical Impression: Fall Patient Disposition: Home, Self-Care Condition: Stable Instructions: Fall Prevention for Older Adults (ED) Additional Instructions: Recommend that someone stays with you for the next couple days. I also recommend that you follow-up with your primary care provider this coming week to discuss the need for any further testing given this episode of unexplained falling. If this occurs again, return to the ER. Prescriptions: No Action aspirin 81 mg tablet,delayed release (DR/EC) 81 mg PO QDAY calcium carbonate 500 mg calcium (1,250 mg) tablet 500 mg PO QDAY Follow Up/Referrals: Keyla Estes DO [Primary Care Provider] - Stand Alone Forms: [employer] Info Instructions
[2024-12-02 11:56] LABS: Bacteria Urine Few; RBC Urine 0-2 (0-2); Squamous Epithelial Cell Urine Few (None-Few)
[2024-12-02 12:11] LABS: Ethanol* < 0.00 % (0.01-0.03)
== END 2024-12-02 12:34 | disposition home or self-care (01) ==
PROVIDERS: Emergency Provider Family Medicine; PCP Family Medicine
DX: S09.90XA Unspecified injury of head, initial encounter (principal); W01.10XA Fall on same level from slipping, tripping and stumbling with subsequent striking against unspecified object, initial encounter; R39.9 Unspecified symptoms and signs involving the genitourinary system
CPT/HCPCS: 36415; 70450; 72125; 80048; 80076; 81001; 82077; 83605; 83735; 84484; 85025; 86140; 86308; 87086; 87631; 93005; 99284; 99291